=== PATIENT | female | born 1960 | race Two or more races ===

== ENCOUNTER → 2023-10-16 12:36 | Outpatient (REF) | payer OTHER, SELFPAY | LOC: HWRAD 12:36 | PROVIDERS: ATTENDING PHYSICIAN Internal Medicine Gastroenterology; FAMILY PHYSICIAN Family Medicine; REFERRING PHYSICIAN Internal Medicine Gastroenterology | DX: Z96.89 Presence of other specified functional implants (principal) | CPT/HCPCS: 74018 ==

== ENCOUNTER 2023-10-22 23:49 | Inpatient (IN) | payer MEDICARE, OTHER, SELFPAY ==
[2023-10-22 20:51] LABS: % Basophils 0.9 % (0-2); % Eosinophils 3.1 % (0-6); % Immature Granulocytes 0.4 % (0-0.5); % Lymphocytes 30.3 % (20.5-51.1); % Monocytes 5.8 % (1.7-9.3); % Neutrophils 59.5 % (42.2-75.2); Absolute Basophils 0.1 10^3/uL (0-0.2); Absolute Eosinophils 0.4 10^3/uL (0-0.7); Absolute Immature Granulocytes 0.1 10^3/uL (0-0.05); Absolute Lymphocytes 3.9 10^3/uL (1.2-3.4); Absolute Monocytes 0.8 10^3/uL (0.1-0.6); Absolute Neutrophils 7.7 10^3/uL (1.4-6.5); Hematocrit 39.8 % (37.0-47.0); Hemoglobin 13.9 g/dL (12.0-16.0); Mean Corp Hgb Conc. 34.9 g/dL (33.0-37.0); Mean Corpuscular Hgb 26.3 pg (27.0-31.0); Mean Corpuscular Volume 75.4 fL (81.0-99.0); Mean Platelet Volume 9.9 fL (7.4-10.4); Nucleated Red Blood Cells % 0 %; Platelet Count 402 10^3/uL (130-400); Red Blood Cell Count 5.28 10^6/uL (4.20-5.40); Red Cell Dist. Width 14.4 % (11.5-14.5); White Blood Cell Count 12.9 10^3/uL (4.8-10.8)
[2023-10-22 21:01] LABS: Lactic Acid 3.4 mmol/L (0.7-2.0)
[2023-10-22 21:09] LABS: ALT (SGPT) 40 U/L (0-35); AST (SGOT) 36 U/L (14-36); Albumin 4.8 g/dl (3.5-5.0); Alkaline Phosphatase 151 U/L (38-126); Blood Urea Nitrogen 13 mg/dl (7-17); Calcium 9.4 mg/dl (8.4-10.2); Carbon Dioxide 21 mmol/L (22-30); Chloride 99 mmol/L (98-107); Glucose 435 mg/dl (70-99); Potassium 3.9 mmol/L (3.5-5.1); Sodium 133 mmol/L (135-145); Total Bilirubin 0.5 mg/dl (0.2-1.3); Total Protein 7.6 g/dl (6.3-8.2); eGFR > 60.00
[2023-10-22 22:40] LABS: Lipase > 4000 U/L (23-300)
--- NOTE | 2023-10-22 22:49 | ED.GENMED ---
History of Present Illness
General
Chief Complaint: Abdominal Pain
Source: patient
Exam Limitations: none
Time Seen by Provider: 10/22/23 22:17
Nursing documentation reviewed up to this point in time: agreed with
Travel History
Have you had any contact with someone who has COVID-19?: No
Do you have any symptoms of coronavirus? Fever > 100 degrees, chills, cough, shortness of breath, sore throat, loss of taste or smell, muscle aches, or headache?: No
History of Present Illness
History of Present Illness:
Patient with history of pancreatitis and chronic abdominal pain, presents to ED secondary to worsening abdominal pain with nausea and vomiting starting this afternoon. Denies fever or chills. Abdominal pain described as sharp, nonradiating,
without any alleviating or exacerbating factors. Patient unfortunately has had number of similar in the past, and is being evaluated as an outpatient, including scheduled genetic testing next month. Denies recent change in medications or diet.
Denies fever or chills. Denies diarrhea.
Past History
Past History
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
ED Past Surgical History: Cholecystectomy, Gynecological and Other (status post several stents and cyst gastrostomy 10/2022)
Social History
Tobacco: Non-smoker
Alcohol: None
Personal:
Living: with family
Employment: Not employed
Family History
Family History: Other (Noncontributory)
Review of Systems
Review of Systems
Allergies reviewed?: Yes
All Other Systems: ROS reviewed and negative except as documented in HPI and ROS
Constitutional: Reports no symptoms; Denies fever
Respiratory: Reports no symptoms
Cardiac: Reports no symptoms
ABD/GI: Reports abdominal pain, nausea and vomiting; Denies diarrhea
Musculoskeletal: Reports no symptoms
Skin: Reports no symptoms
Neurological: Reports no symptoms
Phy Exam
Physical Exam
Physical Exam:
Physical Exam
General: moderate painful distress, not acutely ill. afebrile
Head: nc/at. eomi
Neck: supple. no meningeal signs.
Heart: s1/s2 regular rate and rhythm, no murmur. equal radial pulses.
Lungs: no acute respiratory distress. clear bilaterally
Abdomen: normal bowel sounds. no distention. moderate diffuse tenderness to palpation.
Neuro: alert and oriented. no focal neurological deficits
Skin: no rash
Psychiatric: well kept. interactive and cooperative
Extremities: no edema. no calf tenderness.
Course
Orders/Labs/Results
Orders:
Orders
10/22/23 20:43
Complete Blood Count/With Diff Urgent
Comprehensive Metabolic Panel Urgent
Lactic Acid Urgent
Lipase Urgent
Comment: ADD ON
Blood Culture Urgent
SANJIV Source: Blood/Venous
Specimen Description:
10/22/23 21:29
Add On- LAB Urgent
Tests Added?: lipase
10/22/23 21:39
Add On- LAB Urgent
Tests Added?: lipase
10/22/23 22:49
0.9% Sodium Chloride 1000 ml [Nss] 1,000 ml IV BOLUS
HYDROmorphone [Dilaudid] 1 mg IV NOW STA
Ondansetron Injectable [Zofran] 4 mg IV NOW STA
10/22/23 23:09
Diphenhydramine [Benadryl] 50 mg IV NOW STA
Hydrocortisone Sod Succinate [Solu-Cortef] 200 mg IV NOW STA
10/22/23 23:14
Admit/Transfer Patient As Directed
Co-Sign Provider:
Level of Care: Inpatient admission
Assign to:: Medical/Surgical
Physician / Group: justiny
Diagnosis: Recurrent idiopathic pancreatitis Leukocytosis
Reason for Hospitalization: Recurrent idiopathic pancreatitis
Leukocytosis
Expected length of stay greater than two midnights?: Yes
ELOS- Estimated Length of Stay in days: 4
I certify the patient meets the requirements for IP care: Yes
10/22/23 23:16
Code Status As Directed
Resuscitation Status: Full Code
10/23/23 00:00
CT Abd/pelvis W Iv Cont Urgent
Reason For Exam: upper abdominal pain w hx necrotizing pancreatitis
10/23/23 00:20
Albuterol [ProAIR HFA INHALER] 2 puff INH R Q4HPRN PRN
HYDROmorphone [Dilaudid] 1 mg IV Q3HPRN PRN
Lactated Ringers [Lr] 1,000 ml IV 250 mls/hr
Ondansetron Injectable [Zofran] 4 mg IV Q6HPRN PRN
10/23/23 00:20
Consult Notification Routine
Specialty to Notify: Gastroenterology
GASTROINTESTINAL CONSULT Routine
Consulting Provider: Natasha Jamison
Was physician already notified: No
Reason for consult: Recurrent idiopathic pancreatitis Leukocytosis
Activity As Directed
Activity Level: Encourage Progressive Amb
Intake/ Output As Directed
Frequency: Per unit guidelines
Vital Signs As Directed
Frequency: Per unit guidelines
Weight As Directed
Frequency: Daily
DX Deep Vein Thrombosis Video Routine
10/23/23 Breakfast
NPO
Allow oral meds: No
Allow clear liquids: No
NPO with Ice Chips: Yes
Complete Blood Count/No Diff IN AM
Comprehensive Metabolic Panel IN AM
Lipase IN AM
10/23/23 08:00
Levetiracetam Injectable [Keppra] 500 mg IV Q12
10/23/23 18:00
Enoxaparin Sodium [Lovenox] 40 mg SC QPM
10/24/23 06:00
Lipase IN AM
10/25/23 06:00
Lipase IN AM
Abnormal Lab Results
10/22/23
20:43
WBC 12.9 H 10^3/uL
(4.8-10.8)
MCV 75.4 L fL
(81.0-99.0)
MCH 26.3 L pg
(27.0-31.0)
Plt Count 402 H 10^3/uL
(130-400)
Abs Immat Gran (auto) 0.1 H 10^3/uL
(0-0.05)
Absolute Neuts (auto) 7.7 H 10^3/uL
(1.4-6.5)
Absolute Lymphs (auto) 3.9 H 10^3/uL
(1.2-3.4)
Absolute Monos (auto) 0.8 H 10^3/uL
(0.1-0.6)
Sodium 133 L mmol/L
(135-145)
Carbon Dioxide 21 L mmol/L
(22-30)
Glucose 435 H mg/dl
(70-99)
Lactic Acid 3.4 H mmol/L
(0.7-2.0)
ALT 40 H U/L
(0-35)
Alkaline Phosphatase 151 H U/L
(38-126)
Lipase > 4000 H* U/L
(23-300)
10/22/23 20:43
10/22/23 20:43
Vital Signs
Initial and Last Documented VS:
Initial Vital Signs
Temp Pulse Resp Pulse Ox
97.9 F 106 20 97
10/22/23 20:38 10/22/23 20:38 10/22/23 20:38 10/22/23 20:38
Last Documented Vital Signs
Temp Pulse Resp BP Pulse Ox
98.8 F 91 20 156/88 96
10/23/23 00:20 10/23/23 00:20 10/23/23 00:20 10/23/23 00:20 10/23/23 02:00
MDM/Problems Addressed
MDM/Problems Addressed:
History, exam, and blood work consistent with recurrent pancreatitis. Patient will be admitted for pain control and IV hydration.
*Critical Care Note
Total Time (30-74mins, 75-104mins- exclusive of procedures): Not Applicable
ED Attending Note
-
Portions of this chart may have been created with voice recognition software.� Occasional wrong word or��sound alike� substitutions may have occurred due to the inherent limitations of voice recognition software.
Discharge Plan
Departure
Patient Disposition: Admit
Date of Disposition: 10/22/23
Time of Disposition: 22:52
Admit to: Med/Surg
Presentation/result/management discussed w/ accepting MD/DO: Hospitalist
Discharge Problem:
Acute pancreatitis
Interventions
Interventions:
*Risk Screen - Suicide Last Done: 10/22/23 20:38
*General Assessment Last Done: 10/22/23 20:38
*Neglect/Abuse Screening Last Done: 10/22/23 20:38
ED- Fall Risk Assessment Last Done: 10/23/23 00:22
*ED COVID-19 Vaccine History Last Done: 10/23/23 00:22
*Nursing Disposition Last Done: 10/23/23 00:22
IX-Zqytpz-Yeptfqzxny Assessment Last Done: 10/22/23 23:10
Discharge Date and Time
Discharge Date/Time: 10/23/23 00:23
[2023-10-22] MEDS: NSS 1000 IV (23:03)
[2023-10-22] MEDS: ZOFRAN 4 MG IV (23:04)
[2023-10-22] MEDS: DILAUDID 1 MG IV (23:04)
[2023-10-22 23:08] VITALS: BP 152/100
--- NOTE | 2023-10-22 23:11 | HPS.HSE ---
Addendum entered and electronically signed by Robinson Lester MD 10/23/23 14:38:
CT AP w IV contrast
1. � Acute pancreatitis with extensive peripancreatic inflammatory change surrounding pancreatic head.
Small amount of unorganized associated peripancreatic and retroperitoneal fluid. No signs of abscess formation or well organized pseudocyst formation.
2. � Unchanged probable benign left lower lobe nodule as above.
3. � Hepatic fatty infiltration. Hepatic simple cysts and probable cysts as seen prior.
Original Note:
Family Physician
-
Family Physician: Ann Marie Bravo
Chief Complaint
-
abdominal pain
History of Present Illness
63F HX necrotizing pancreatitis, necrosectomy , on pancreatic enzymes, idiopathic recurrent pancreatitis pw abrupt onset of increasing upper abdominal pain 3 hrs after cheese burger tonight. Vomited. Denied nausea. Usually she does not fet
nausea. She immediacy came to ER
Medical History
Past Medical History
Past Medical History: Reports Other
Additional Past Medical History:
Epilepsy
Graves' disease -treated with radioactive iodine
Moderate persistent asthma
Seasonal allergies
Essential hypertension
Recurrent pancreatitis
Fibroids
SANDRA
IBS�D
Colon polyps
Past Surgical History: Reports Other
Additional Past Surgical History:
Cholecystectomy, Gynecological and Tonsillectomy
Social History
Tobacco: Former Smoker
Alcohol: None
Drug: None
Personal:
Living: With Family
Family History
Family History: Not pertinent
Allergies / Home Medications
Allergies reflects when Allergies were last updated in [facility].
Home Medications with original date entered in [facility]
Allergy/Medication List:
Allergies
Allergy/AdvReac Type Severity Reaction Status Date / Time
cephalexin [From Keflex] Allergy black Verified 10/22/23 20:38
tongue and
stool
Gadolinium-Containing Allergy Anaphylaxis Verified 10/22/23 20:38
Contrast Medi
Iodinated Contrast Media Allergy Hives Verified 10/22/23 20:38
Penicillins Allergy Hives Verified 10/22/23 20:38
Quinolones Allergy Achilles Verified 10/22/23 20:38
tendinitis
Home Medications
albuterol sulfate 90 mcg/actuation aerosol inhaler (Ventolin HFA) 2 puff inhalation R Q4HPRN PRN sob/wheezing 07/21/21
amlodipine 10 mg tablet 10 mg PO DAILY Blood pressure 07/21/21
cetirizine 10 mg tablet 10 mg PO HS Allergies 07/21/21
spironolactone 25 mg tablet 25 mg PO DAILY Fluid retention/Swelling 07/21/21
celecoxib 100 mg capsule (Celebrex) 100 mg PO HS Anti-inflammatory 04/15/22
levetiracetam 500 mg tablet (Keppra) 500 mg PO BID Neurological Condition 04/15/22
pantoprazole 40 mg tablet,delayed release 40 mg PO DAILY Gastrointestinal issue 04/15/22
biotin 1 mg capsule 1 mg PO DAILY Supplement 01/08/23
gabapentin 300 mg capsule 300 mg PO TID Pain 07/06/23
vkwihe-pqoqmtnt-tetjhzm 40,000-126,000-168,000 unit capsule, delay rel (Zenpep) 1 cap PO QID Pancreatitis 07/06/23
famotidine-Ca carb-mag hydrox 10 mg-800 mg-165 mg chewable tablet (Pepcid Complete) 1 tab PO DAILY@1900 10/22/23
levothyroxine 100 mcg tablet 100 mcg PO DAILY 10/22/23
zdfenc-qrgijnhi-jyjslqe 40,000-126,000-168,000 unit capsule, delay rel (Zenpep) 1 cap PO DAILY PRN snack 10/22/23
Review of Systems
-
Constitutional: Reports No Symptoms
EENT: Reports No Symptoms
Respiratory: Reports No Symptoms
Cardiac: Reports No Symptoms
Abdomen/GI: Reports See HPI and Abdominal Pain
: Reports No Symptoms
Musculoskeletal: Reports No Symptoms
Skin: Reports No Symptoms
Neurological: Reports No Symptoms
Endocrine: Reports No Symptoms
Hematologic/Lymphatic: Reports No Symptoms
Psych: Reports No Symptoms
Physical Exam
Vital Signs
Vital Signs
Temp Pulse Resp Pulse Ox
97.9 F 106 20 97
10/22/23 20:38 10/22/23 20:38 10/22/23 20:38 10/22/23 20:38
Physical Exam
General: Well Developed, Well Nourished and Other (obese )
HEENT: Anicteric and PERRLA
Respiratory: Clear; No Wheezes, Rales or Rhonchi
Cardiac: S1/S2, Regular Rhythm and Tachycardia
Breast: Deferred by me
GI: Non Distended and Tender (epigastruin ); No Soft (firm )
Rectal: Deferred by Provider
Genito-urinary: Deferred by me
Musculoskeletal: No Edema
Neuro: AO x 3 and Nonfocal/grossly intact
Psych: Calm
Laboratory Results
-
10/22/23 20:43
10/22/23 20:43
Laboratory Results
Lactic Acid 3.4 mmol/L (0.7-2.0) H 10/22/23 20:43
Total Bilirubin 0.5 mg/dl (0.2-1.3) 10/22/23 20:43
AST 36 U/L (14-36) 10/22/23 20:43
ALT 40 U/L (0-35) H 10/22/23 20:43
Alkaline Phosphatase 151 U/L (38-126) H 10/22/23 20:43
Lipase > 4000 U/L (23-300) H* 10/22/23 20:43
Data Reviewed
-
CT Scan: Other (pending )
Lab Data: Labs Reviewed by me
Old Records: Reviewed
Impression/Plan
-
Reviewed VS: Sinus tachy low 100 Normotensive
Data
WCC 12.9 Plt 402
Na 133 CO2 21 nl Cr eGFR > 60
BG 435
LA 3.4
Lipase > 4000
BCx sent
07/08/23 MRCP
reveal any evidence of biliary stricture/ductal dilatation or CBD stone, pancreas divisum seen on MRCP this admission ?probable cause of recurrent pancreatitis, she is status post cholecystectomy per GI consult on last admission
Last hospitalist admission: 07/06/23 - 07/10/23
Recurrent idiopathic pancreatitis
Pancreatic pseudocyst
ASSESSMENT & PLAN
Recurrent idiopathic pancreatitis
Leukocytosis and Afebrile
HX necrotizing pancreatitis requiring necrosectomy in [place].
HX pancreatic pseudocyst requiring cyst-gastrostomy October 2022
HX contrast allergy
- Need prep for contrast allergy for CT AP w contrast
- NPO and LR IVF 250 cc /H
- PRN Dilaudid analgesia
- low threshold for Extended broad spect ABx like Imipenam if hemodynamically unstable
- GI consult
Epilepsy -stable
- will switch to IV Keppra. in place of PO
HX moderate persistent asthma -stable
- on inhalers.
Essential hypertension -stable.
Graves' disease -treated with radioactive iodine.
- on Synthroid.
SANDRA
Obesity due to excess calories
GERD
DVT Px: LMWH
Code: Full code
IP MS
[2023-10-22] MEDS: SOLU-CORTEF 200 MG IV (23:13)
[2023-10-22] MEDS: BENADRYL 50 MG IV (23:13)
--- NOTE | 2023-10-23 | PTCARENOTE ---
Received pt from ED, pt ambulated from stretcher to bed. Pt in 06/10 pain in abd-see oct. IVF as ordered.
[2023-10-23 00:20] VITALS: BP 156/88; BMI 34.2
[2023-10-23] MEDS: LR 1000 IV ×4 (00:45→18:29)
[2023-10-23] MEDS: DILAUDID 1 MG IV ×7 (00:46→21:17)
[2023-10-23] MEDS: ZOFRAN 4 MG IV ×3 (04:26→18:15)
[2023-10-23 04:38] LABS: Hematocrit 37.8 % (37.0-47.0); Hemoglobin 12.9 g/dL (12.0-16.0); Mean Corp Hgb Conc. 34.1 g/dL (33.0-37.0); Mean Corpuscular Volume 76.2 fL (81.0-99.0); Mean Platelet Volume 10.1 fL (7.4-10.4); Platelet Count 354 10^3/uL (130-400); Red Blood Cell Count 4.96 10^6/uL (4.20-5.40); Red Cell Dist. Width 14.6 % (11.5-14.5)
[2023-10-23 04:59] LABS: Lactic Acid 1.6 mmol/L (0.7-2.0)
[2023-10-23 05:37] LABS: ALT (SGPT) 37 U/L (0-35); AST (SGOT) 28 U/L (14-36); Albumin 4.3 g/dl (3.5-5.0); Alkaline Phosphatase 142 U/L (38-126); Blood Urea Nitrogen 14 mg/dl (7-17); Calcium 9.1 mg/dl (8.4-10.2); Carbon Dioxide 22 mmol/L (22-30); Chloride 106 mmol/L (98-107); Estimated Creatinine Clearance 98 ml/min; Glucose 356 mg/dl (70-99); Lipase 1348 U/L (23-300); Potassium 4.3 mmol/L (3.5-5.1); Sodium 136 mmol/L (135-145); Total Bilirubin 0.5 mg/dl (0.2-1.3); Total Protein 6.8 g/dl (6.3-8.2); eGFR > 60.00
--- NOTE | 2023-10-23 07:26 | CON.GI ---
Addendum entered and electronically signed by Natasha Nowak Do, MD 10/23/23 16:14:
I saw and examined the patient.
The TRUCK TRAILER MECHANIC's note was reviewed and I agree with the note.
Comment: Lynette is a 63yo W with h/o GERD and SANDRA who is known to GI for h/o recurrent idiopathic pancreatitis. She has had necrosis with fluid collection with stenting at [facility] 04/2022 with necrosectomy and LAMS sent 09/2022 with cyst gastrectomy
10/2022 with [facility]. She is admitted for severe epigastric abd pain and pancreatitis. Her last prior admission was in 12/2022 at and she had EUS/ERCP with Dr Sanchez in Sep 2023 with PD sphincterotomy and PD stenting which did not alleviate
her pain. She currently denies any clear triggers but was eating cheese steak at the time of pain starting. Vitals stable, TTP epigastric area. Labs reviewed lipase >4000 on admission. LFTs flat with ALT of 37 AP 142. CTAP acute pancreatitis
with extensive peripancreatic inflammation around head. Small peripancreatic fluid.
Impression
- Acute on chronic pancreatitis
No clear trigger, workup in past neg IGG4, TG
No new medds
- New diabetes diagnosis
- h/o Cdiff
- SANDRA
- Seizures
- Hypothyroidism
Recommendations
- Bowel rest
- C/w IVF LR at 250cc/hr
- Pain management
- DM teaching
- c/w creon once diet is resumed
- D/w Dr Hawthorne/[facility] about EUS neuroloysis for terminal operator management of pain
- Resume neurontin once able to tolerate PO intake
Will follow with you
Original Note:
Consultation
-
Date/Time Consultation Requested: 10/22/2319
Date/Time Consultation Performed: 10/23/2325
Requesting Provider: Dr. Lester
Performing Provider: Dr. Jamison/BAYRON Camacho
Reason for Consultation: pancreatitis
Medical History
Chief Complaint / HPI
Chief Complaint: abdominal pain
History of Present Illness:
63-year-old female with past medical history of GERD, hepatic cyst, obstructive sleep apnea, seizures, Cdiff and multiple episodes of diarrhea ?EPI and hypoparathyroidism, recurrent idiopathic pancreatitis with history of necrosis and fluid
collection requiring lams at [facility] and pigtail stent in 04/2022 with necrosectomy and another lams stent on 09/2022 with removal and cyst gastrectomy on 10/[address] Sanchez at [facility] recurrent pancreatitis in 12/2022 who was placed on
gabapentin by Dr. Sanchez approximately April 2023 with improvement of chronic pain.�She was admitted in July 2023 with recurrent pancreatitis Evidence of biliary stricture/ductal dilatation or CBD stone, pancreatic divisum seen on MRCP this
admission questionable probable cause of recurrent pancreatitis. She had EUS/ERCP on 09/25/[address] Sanchez showing Pancreas divisum with minimally dilated and irregular dorsal pancreatic duct. Severe parenchymal atrophy in the upstream body and
tail. Small anechoic lesion in the pancreatic head. The patient had a biliary sphincterotomy and pancreatic sphincterotomy the dorsal duct was assessed via the minor papilla. The dorsal duct was mildly dilated and irregular in the head of the
pancreas then attenuated in the body and tail. Status post minor papillotomy and 4 Austrian stent placement. The pancreatic duct stent is designed to dislodge spontaneously. Removal of remaining cyst gastrostomy stent at that time. XR of abdomen on
10/16 shows no remaining pancreatic stent. The patient states that she developed a mild abdominal pain around 10/16/23 that was relieved after having a large BM. She had xray that conformed passage of pancreatic stent and large fecal burden was
present. Patient states that this xray was prior to her passing large amount of stool. She states that just after having tent placed she was using Tramadol twice a day but has since stopped. She states that she is maintained on Gabapentin for her
chronic pain by Dr. Sanchez which is usually managable. Last evening she states that for dinner they made cheesesteaks and right after she had acute onset of pain which is different from her prior events. She usually has a build up of pain over a
couple days. This was sudden, periumbilical, dull, aching, radiated through to the back, she states that rocking back and forth soothed her, she noticed 'peanut butter colored stools' different from her dark brown stools but normal yellow urine,
nausea without vomiting. She came directly to the hospital. he denies any F, C, V, melena, hematochezia, dysphagia or odynophagia.
Past Medical History
Past Medical History: GERD, HTN and Other (Hepatic cyst, obstructive sleep apnea, idiopathic pancreatitis with history of necrosis and fluid collection, bronchitis, seizures, hypoparathyroidism, asthma, fibroids, seasonal allergies)
Past Surgical History: Cholecystectomy, Tonsilectomy and Other (Lams procedure with pigtail stent 04/2022, necrosectomy with lams stent on 09/2022 with removal and cyst gastrectomy on 10/2022)
Social History
Tobacco: Former Smoker
Alcohol: None
Drug: None
Personal:
Living: With Family
Employment: Employed
Family History
Family History: Other (Mother with pancreatic cancer, no other family history of gastrointestinal malignancies or inflammatory bowel disease)
Allergies / Home Medications
Allergy/AdvReac Type Severity Reaction Status Date / Time
cephalexin [From Keflex] Allergy black Verified 10/22/23 20:38
tongue and
stool
Gadolinium-Containing Allergy Anaphylaxis Verified 10/22/23 20:38
Contrast Medi
Iodinated Contrast Media Allergy Hives Verified 10/22/23 20:38
Penicillins Allergy Hives Verified 10/22/23 20:38
Quinolones Allergy Achilles Verified 10/22/23 20:38
tendinitis
Medication Instructions Recorded
albuterol sulfate 90 mcg/actuation 2 puff inhalation R Q4HPRN PRN 07/21/21
aerosol inhaler (Ventolin HFA) sob/wheezing
amlodipine 10 mg tablet 10 mg PO DAILY Blood pressure 07/21/21
cetirizine 10 mg tablet 10 mg PO HS Allergies 07/21/21
spironolactone 25 mg tablet 25 mg PO DAILY Fluid 07/21/21
retention/Swelling
celecoxib 100 mg capsule (Celebrex) 100 mg PO HS Anti-inflammatory 04/15/22
levetiracetam 500 mg tablet 500 mg PO BID Neurological 04/15/22
(Keppra) Condition
pantoprazole 40 mg tablet,delayed 40 mg PO DAILY Gastrointestinal 04/15/22
release issue
biotin 1 mg capsule 1 mg PO DAILY Supplement 01/08/23
gabapentin 300 mg capsule 300 mg PO TID Pain 07/06/23
fmhsag-oqpgczkh-alfguat 1 cap PO MEALS Pancreatitis 07/06/23
40,000-126,000-168,000 unit
capsule, delay rel (Zenpep)
famotidine-Ca carb-mag hydrox 10 1 tab PO DAILY@1900 10/22/23
mg-800 mg-165 mg chewable tablet
(Pepcid Complete)
levothyroxine 100 mcg tablet 100 mcg PO DAILY 10/22/23
hxadap-mqmesqnp-sgcklwt 1 cap PO DAILY PRN snack 10/22/23
40,000-126,000-168,000 unit
capsule, delay rel (Zenpep)
Review of Systems
-
All other systems: A 12 pt ROS was Negative except as stated above in HPI
Vital Signs
Temp Pulse Resp BP Pulse Ox
98.8 F 91 20 156/88 96
10/23/23 00:20 10/23/23 00:20 10/23/23 00:20 10/23/23 00:20 10/23/23 02:00
Physical Exam
Exam
General: Other (appears uncomfortable)
HEENT: Anicteric
Respiratory: Clear
Cardiac: Regular Rhythm
GI: Soft, Non Distended, Normal Bowel Sounds and Tender (periumbilical/epigastric)
Musculoskeletal: No Edema
Skin: Warm and Dry
Neuro: AO x 3
Psych: Calm
Results
WBC 14.0 10^3/uL (4.8-10.8) H 10/23/23 04:25
Hgb 12.9 g/dL (12.0-16.0) 10/23/23 04:25
Hct 37.8 % (37.0-47.0) 10/23/23 04:25
MCV 76.2 fL (81.0-99.0) L 10/23/23 04:25
Plt Count 354 10^3/uL (130-400) 10/23/23 04:25
Absolute Neuts (auto) 7.7 10^3/uL (1.4-6.5) H 10/22/23 20:43
Sodium 136 mmol/L (135-145) 10/23/23 04:25
Potassium 4.3 mmol/L (3.5-5.1) 10/23/23 04:25
Chloride 106 mmol/L (98-107) 10/23/23 04:25
Carbon Dioxide 22 mmol/L (22-30) 10/23/23 04:25
BUN 14 mg/dl (7-17) 10/23/23 04:25
Creatinine 0.6 mg/dL (0.6-1.0) 10/23/23 04:25
Calcium 9.1 mg/dl (8.4-10.2) 10/23/23 04:25
Total Bilirubin 0.5 mg/dl (0.2-1.3) 10/23/23 04:25
AST 28 U/L (14-36) 10/23/23 04:25
ALT 37 U/L (0-35) H 10/23/23 04:25
Alkaline Phosphatase 142 U/L (38-126) H 10/23/23 04:25
Lipase 1348 U/L (23-300) H* 10/23/23 04:25
Diagnostic Image Results:
Awaiting CT results
Prior GI Procedures:
09/25/2023 ERCP (Dr. Sanchez): There is no evidence of prior cholecystectomy. The bile duct was dilated to a maximum of 14 mm and tapered to the papilla. There were no filling defects or strictures. The ventral pancreatic duct was assessed via
the major papilla. There was a small distally branching ductal structure consistent with pancreas divisum. At the proximal aspect of the duct there was a small amount of extravasation into the known pseudocyst. Status post biliary sphincterotomy
and pancreatic sphincterotomy the dorsal duct was assessed via the minor papilla. The dorsal duct was mildly dilated and irregular in the head of the pancreas then attenuated in the body and tail. Status post minor papillotomy and 4 Austrian stent
placement. The pancreatic duct stent is designed to dislodge spontaneously. Removal of remaining cyst gastrostomy stent. Recommend follow-up AXR in 3 weeks to assess for stent migration.
09/25/23 EUS ([facility]): Pancreas divisum with minimally dilated and irregular dorsal pancreatic duct. Severe parenchymal atrophy in the upstream body and tail. Small anechoic lesion in the pancreatic head.
EGD:� 05/10/2022 Dr. Ramirez: �Normal esophagus. An Axio stent with two pigtails was noted in the gastric body. Old blood clot was noted inside the stent. No active bleeding was noted . Normal examined duodenum. No specimens collected.
Colonoscopy:� 11/02/2020, Dr. Huerta: The examined portion of the ileum was normal. One 3 mm polyp in the descending colon, removed with� a jumbo cold forceps. Resected and retrieved. Normal mucosa in the entire examined colon. Biopsied.� Internal
hemorrhoids. Path showing TA, focal acute colitis on random colon bx. Repeat in 3 years.
10/14/22 EUS/ERCP [facility]: LAMS stent removal and placement of pigtail stent, 5Fr; prior LAMS placed 09/12/22
Assessment / Plan
-
63-year-old female with past medical history of recurrent idiopathic pancreatitis with history of necrosis and fluid collection requiring lams at [facility] and pigtail stent in 04/2022 with necrosectomy and another lams stent on 09/2022 with removal
and cyst gastrectomy on 10/[address] Sanchez at [facility] recurrent pancreatitis in 12/2022, 07/2023 with EUS/ERCP on 09/25/[address] Sanchez showing Pancreas divisum with minimally dilated and irregular dorsal pancreatic duct. Severe
parenchymal atrophy in the upstream body and tail. Small anechoic lesion in the pancreatic head. The patient had a biliary sphincterotomy and pancreatic sphincterotomy the dorsal duct was assessed via the minor papilla. The dorsal duct was mildly
dilated and irregular in the head of the pancreas then attenuated in the body and tail. Status post minor papillotomy and 4 Austrian stent placement. The pancreatic duct stent is designed to dislodge spontaneously. Removal of remaining cyst
gastrostomy stent at that time. XR of abdomen on 10/16 shows no remaining pancreatic stent. Presents with acute onset of periumbilical pain, that radiates to the back after eating cheesesteak last evening. Lipase >4000. ALT/Alk Phos elevated. Patient
also with leukocytosis. Awaiting CT Abd/Pelvis. Has been started on LR at 250 hr with appropriate drop in Hgb and normalization of Lactic acid from 3.4 to 1.6.
Impression:
Acute pancreatitis
History of recurrent idiopathic pancreatitis with history of necrosis, 12/2022, 04/2023, 07/2023
Pancreatic divisum
Plan
-Continue lactated Ringer's at 250 an hour
-Continue analagesia and antiemetics
-Incentive spirometer
-Await results of CT Abd/Pelvis
-Await blood culture
-CRP in am
-CBC, CMP, lipase in a.m.
-Patient to resume pancreatic enzymes once tolerating diet
Data Reviewed
-
Old Records: Reviewed
-
-
Thank you for consultation and allowing me to participate in the patient's care. Please call the board of education secretary GI physician during the after hours with any questions or concerns.
[2023-10-23 07:55] VITALS: BP 153/87
[2023-10-23] MEDS: KEPPRA 500 MG IV ×2 (08:20→19:57)
--- NOTE | 2023-10-23 08:52 | W.PN.HOSP.TC ---
Today's Communication/Plan
-
Reduce rate of IV fluids
Hemoglobin A1c
Sliding scale insulin
Assessment / Plan
Assessment / Plan
Gen-AAOx3, NAD, obese
HEENT-NC, AT, anicteric, clear oral mm
Neck-supple
CV-reg, no M, +S1/S2
Lungs-clear B/L
Abd-soft, tender without guarding or rebound
Ext-no edema
Musculoskeletal-no cyanosis, clubbing
Skin-warm and dry
Neuro-grossly non-focal
Psych-calm, cooperative
Recurrent acute pancreatitis -possibly triggered by dietary indiscretion. Ate a beef cheese steak last night. Continue n.p.o., antiemetics, analgesics. Has received 3 L of lactated Ringer's solution so far. Will reduce rate to 100 cc/h. CT scan
shows acute pancreatitis with extensive peripancreatic inflammatory change surrounding the pancreatic head. No signs of abscess formation or well-organized pseudocyst formation.
GI consulted. Previous IgG4 levels were normal.
She had a pancreatic stent placed 4 weeks ago in [place], reportedly came out 1 week ago as noted on abdominal x-ray.
History of necrotizing pancreatitis -requiring necrosectomy in the past.
DM2 with hyperglycemia -she reports a hemoglobin A1c of 6.7% in August. Will recheck. Glucose 435 last night, 356 this morning. Add sliding scale insulin for now.
Hyponatremia -present on admission. Improved.
Essential hypertension -stable.
History of Graves' disease, hypothyroidism -resume Synthroid when able.
Epilepsy -continue Keppra IV.
Chronic pain syndrome -due to chronic pancreatitis. She is on gabapentin and pancreatic enzymes.
Moderate persistent asthma -stable.
Obesity due to excess calories
Full code
Anticipated Discharge: > 48 hours
Subjective/Interval History
-
Date of Service: October 23, 2023
Patient seen and examined. Complaining of abdominal pain. Denies nausea.
Objective Data
-
Labs:
Laboratory Results
10/22/23 10/23/23
20:43 04:25
WBC 12.9 H 14.0 H
Hgb 13.9 12.9
Hct 39.8 37.8
Plt Count 402 H 354
Sodium 133 L 136
Potassium 3.9 4.3
Chloride 99 106
Carbon Dioxide 21 L 22
BUN 13 14
Creatinine 0.7 0.6
Glucose 435 H 356 H
Calcium 9.4 9.1
Total Bilirubin 0.5 0.5
AST 36 28
ALT 40 H 37 H
Alkaline Phosphatase 151 H 142 H
Vital Signs:
Vital Signs
Temp Pulse Resp BP Pulse Ox
98.4 F 89 18 153/87 95
10/23/23 07:55 10/23/23 07:55 10/23/23 07:55 10/23/23 07:55 10/23/23 07:55
Review of Systems
-
History Source: Patient
All other systems: Reviewed and negative
[2023-10-23 09:34] LABS: Glycohemoglobin (HgbA1c) 10.5 % (4.0-5.6)
[2023-10-23] MEDS: LR IV (10:54)
[2023-10-23 11:04] LABS: Alcohol None Detected
[2023-10-23 12:05] LABS: Glucose - Point of Care 190 mg/dl (70-99)
[2023-10-23] MEDS: NOVOLOG FLEXPEN-LOW RESISTANCE 1 UNITS SC ×2 (13:25→18:25)
[2023-10-23 15:39] VITALS: BP 149/95
--- NOTE | 2023-10-23 16:34 | CM ---
CM following re: d/c planning
Chart reviewed
CM met with the patient and her spouse at bedside; IA completed
Pt reports she and her house reside in a split-level home with 2STE
SCHOOL BUS AIDE patient reports independence at baseline
Pt has no past SNF hx, has VN hx with [facility], and has a r/w, spc, shower chair, & bsc for use if needed
Pt has prescription coverage and rx's are filled at [facility] [address] [place]
Pt PCP-Dr. Ann Marie Bravo
No needs are anticipated once stable
CM will continue to monitor patient's progress and assist with any needs at d/c as applicable
PLAN; d/c home no needs anticipated
[2023-10-23] MEDS: LOVENOX 40 MG SC (18:15)
[2023-10-23 18:24] LABS: Glucose - Point of Care 162 mg/dl (70-99)
[2023-10-23 22:43] VITALS: PULSE 83
[2023-10-23 23:30] VITALS: BP 158/88
[2023-10-23] MEDS: LANTUS 0.100000000000000006 UNITS SC (23:51)
[2023-10-24] MEDS: BENADRYL 25 MG IV ×3 (00:07→11:06)
[2023-10-24] MEDS: DILAUDID 1 MG IV ×5 (00:36→21:18)
[2023-10-24 01:48] LABS: Glucose - Point of Care 183 mg/dl (70-99)
[2023-10-24] MEDS: NOVOLOG FLEXPEN-LOW RESISTANCE 300 UNITS SC ×2 (01:52→06:11)
[2023-10-24 05:04] VITALS: BMI 34.7
[2023-10-24] MEDS: LR 1000 IV ×2 (05:11→16:29)
[2023-10-24] MEDS: ProAIR HFA INHALER 2 PUFF INH (06:05)
[2023-10-24 06:07] LABS: Glucose - Point of Care 178 mg/dl (70-99)
[2023-10-24 07:38] LABS: % Basophils 0.9 % (0-2); % Eosinophils 4.1 % (0-6); % Immature Granulocytes 0.6 % (0-0.5); % Lymphocytes 26.5 % (20.5-51.1); % Monocytes 6.7 % (1.7-9.3); % Neutrophils 61.2 % (42.2-75.2); Absolute Basophils 0.1 10^3/uL (0-0.2); Absolute Eosinophils 0.4 10^3/uL (0-0.7); Absolute Immature Granulocytes 0.1 10^3/uL (0-0.05); Absolute Lymphocytes 2.8 10^3/uL (1.2-3.4); Absolute Monocytes 0.7 10^3/uL (0.1-0.6); Absolute Neutrophils 6.4 10^3/uL (1.4-6.5); Hematocrit 33.9 % (37.0-47.0); Hemoglobin 11.3 g/dL (12.0-16.0); Mean Corp Hgb Conc. 33.3 g/dL (33.0-37.0); Mean Corpuscular Hgb 26.6 pg (27.0-31.0); Mean Corpuscular Volume 79.8 fL (81.0-99.0); Mean Platelet Volume 10.1 fL (7.4-10.4); Nucleated Red Blood Cells % 0 %; Platelet Count 304 10^3/uL (130-400); Red Blood Cell Count 4.25 10^6/uL (4.20-5.40); Red Cell Dist. Width 15.1 % (11.5-14.5); White Blood Cell Count 10.4 10^3/uL (4.8-10.8)
[2023-10-24 07:55] VITALS: BP 135/77
[2023-10-24 08:31] LABS: ALT (SGPT) 32 U/L (0-35); AST (SGOT) 30 U/L (14-36); Albumin 3.9 g/dl (3.5-5.0); Alkaline Phosphatase 119 U/L (38-126); Blood Urea Nitrogen 9 mg/dl (7-17); Calcium 8.4 mg/dl (8.4-10.2); Carbon Dioxide 27 mmol/L (22-30); Chloride 101 mmol/L (98-107); Estimated Creatinine Clearance 85 ml/min; Glucose 169 mg/dl (70-99); Lipase 501 U/L (23-300); Potassium 3.4 mmol/L (3.5-5.1); Sodium 135 mmol/L (135-145); Total Bilirubin 0.8 mg/dl (0.2-1.3); Total Protein 6.2 g/dl (6.3-8.2); eGFR > 60.00
--- NOTE | 2023-10-24 09:19 | W.PN.HOSP.TC ---
Today's Communication/Plan
-
Continue IV fluids
Diabetes education consult
Replete potassium
Check magnesium
Assessment / Plan
Assessment / Plan
Gen-AAOx3, NAD, obese
HEENT-NC, AT, anicteric, clear oral mm
Neck-supple
CV-reg, no M, +S1/S2
Lungs-clear B/L
Abd-soft, tender without guarding or rebound
Ext-no edema
Musculoskeletal-no cyanosis, clubbing
Skin-warm and dry
Neuro-grossly non-focal
Psych-calm, cooperative
Recurrent acute pancreatitis -possibly triggered by dietary indiscretion. Ate a beef cheese steak last night. Continue n.p.o., antiemetics, analgesics. Has received 3 L of lactated Ringer's solution so far. Will reduce rate to 100 cc/h. CT scan
shows acute pancreatitis with extensive peripancreatic inflammatory change surrounding the pancreatic head. No signs of abscess formation or well-organized pseudocyst formation.
GI consulted. Previous IgG4 levels were normal.
She had a pancreatic stent placed 4 weeks ago in [place], reportedly came out 1 week ago as noted on abdominal x-ray. Evaluated by Dr. Hawthorne, will need outpatient follow-up.
History of necrotizing pancreatitis -requiring necrosectomy in the past.
DM2 with hyperglycemia -she reports a hemoglobin A1c of 6.7% in August. Hemoglobin A1c 10.5% currently. New diagnosis of diabetes for her. Glucose 169 this morning, received 10 units of Lantus last night. Continue sliding scale insulin. Add
mealtime insulin when she resumes diet. Consult diabetes education. Encouraged weight loss to help manage her diabetes. Follow-up with Dr. Reilly her billing checker.
Hypokalemia -check magnesium. Will replete.
Hyponatremia -present on admission. Improved.
Essential hypertension -stable.
History of Graves' disease, hypothyroidism -resume Synthroid when able.
Epilepsy -continue Keppra IV.
Chronic pain syndrome -due to chronic pancreatitis. She is on gabapentin and pancreatic enzymes.
Moderate persistent asthma -stable.
Obesity due to excess calories
Full code
Anticipated Discharge: > 48 hours
Subjective/Interval History
-
Date of Service: October 24, 2023
Patient seen and examined. Still with abdominal pain.
Objective Data
-
Labs:
Laboratory Results
10/24/23
07:16
WBC 10.4
Hgb 11.3 L
Hct 33.9 L
Plt Count 304
Sodium 135
Potassium 3.4 L
Chloride 101
Carbon Dioxide 27
BUN 9
Creatinine 0.7
Glucose 169 H
Calcium 8.4
Total Bilirubin 0.8
AST 30
ALT 32
Alkaline Phosphatase 119
Vital Signs:
Vital Signs
Temp Pulse Resp BP Pulse Ox
98.0 F 93 20 158/88 96
10/23/23 23:30 10/23/23 23:30 10/23/23 23:30 10/23/23 23:30 10/23/23 23:30
I&O
10/23/23 10/24/23 10/25/23
06:59 06:59 06:59
Intake Total 1839
Balance 1839
Review of Systems
-
History Source: Patient
All other systems: Reviewed and negative
[2023-10-24] MEDS: KCL 270 MEQ IV (09:40)
[2023-10-24] MEDS: FLUSH (NSS) 2 FLUSH IV (09:40)
[2023-10-24] MEDS: KEPPRA 500 MG IV ×2 (09:40→19:49)
[2023-10-24 10:08] LABS: Magnesium 1.8 mg/dl (1.6-2.3)
--- NOTE | 2023-10-24 11:15 | PTCARENOTE ---
Diabetes education- Met with Lynette and at bedside. A1C 10.5% (recalls being 6.5-6.7%). Past hx of necrosectomy which increases her risk of pancreatic failure. Currently NPO. Provided with and instructions given on Contour Next EZ, good
return demonstration with result of 157 mg/dl. Aware of testing technique, sites and expected results. Testing pattern to be determined at discharge dependent on medications. Discussed onset, peak and duration of both rapid and long acting insulins
to familiarize her with their actions. Discussed injection sites, abd and outer thigh. Discussed symptoms and treatment of hypoglycemia. Instructions with excellent return demonstration x2 using insulin pen as well as storage of insulin pens. Take
home education booklet provided with information marked and phone number for follow up questions. Handout on outpt DSME classes given. Updates to JAMMIE Coronado with suggestion to have her self inject (take home pen needles on windowsill) to increase
comfort level in the event she is discharged on insulin.
--- NOTE | 2023-10-24 11:40 | W.PN.GI.CBS2 ---
Addendum entered and electronically signed by Chelsea Herrera DO 10/24/23 16:33:
Patient seen and examined independently of TALENT ACQUISITION RELATIONSHIP MANAGER. I agree with her note with my additions below
Lynette is a 63-year-old female with acute on chronic recurrent idiopathic pancreatitis (history of pancreatic divisum) these episodes appear to be more frequent who comes in with classic pancreatitis like pain as well as a lipase greater than 4000,
elevated CRP at 43 which is better than her normal of greater than 270. Her liver enzymes have normalized. Reviewed her CT scan. No organized pseudocyst.
Currently her pain is 7 out of 10 and she received Dilaudid about an hour and a half ago. She is on ice chips alone. Had mild nausea but may have been related to the Dilaudid. Is also itching
On exam she has bowel sounds and abdomen is soft but tender
Plan:
Clear liquid diet
Toradol 15 mg IV now
Incentive spirometer every hour
Okay to continue the Dilaudid but would like to alternate with Toradol -will minimize and monitor the amount of Toradol she gets because we do not want to worsen her renal function or cause any bleeding
Discussed with patient, and nursing
Original Note:
Today's Communication / Plan
-
Continue current tx
Assessment / Plan
-
63-year-old female with past medical history of recurrent idiopathic pancreatitis with history of necrosis and fluid collection requiring lams at [place] and pigtail stent in 04/2022 with necrosectomy and another lams stent on 09/2022 with removal
and cyst gastrectomy on 10/[address] Sanchez at [place] recurrent pancreatitis in 12/2022, 07/2023 with EUS/ERCP on 09/25/[address] Sanchez showing Pancreas divisum with minimally dilated and irregular dorsal pancreatic duct. Severe
parenchymal atrophy in the upstream body and tail. Small anechoic lesion in the pancreatic head. The patient had a biliary sphincterotomy and pancreatic sphincterotomy the dorsal duct was assessed via the minor papilla. The dorsal duct was mildly
dilated and irregular in the head of the pancreas then attenuated in the body and tail. Status post minor papillotomy and 4 [place] stent placement. The pancreatic duct stent is designed to dislodge spontaneously. Removal of remaining cyst
gastrostomy stent at that time. XR of abdomen on 10/16 shows no remaining pancreatic stent. Presents with acute onset of periumbilical pain, that radiates to the back after eating cheesesteak last evening. Lipase >4000. ALT/Alk Phos elevated. Patient
also with leukocytosis. Awaiting CT Abd/Pelvis. Has been started on LR at 250 hr with appropriate drop in Hgb and normalization of Lactic acid from 3.4 to 1.6.
Impression:
Acute pancreatitis
History of recurrent idiopathic pancreatitis with history of necrosis requiring necrosectomy in the past.
Recent episodes of Pancreatitis 12/2022, 04/2023, 07/2023
Pancreatic divisum
Diabetes with Hgb A1c 10.5
Plan
-Continue lactated Ringer's, currently at 100 cc/hr
-Continue analgesia and antiemetics
-Incentive spirometer
-CBC, CMP
-Patient to resume pancreatic enzymes once tolerating diet
-Resume Gabapentin when po started
-Follow up with Endocrine after DC
-Continue ice chips, hopefully be able to start sips of clears soon
-Follow up with Dr. Sanchez as outpatient
-Will follow
Subjective
Subjective
Date of Service: October 24, 2023
1348
Patient still with periumbilical pain but slightly improved.She states it is still a 'gnawing pain'. She is tolerating ice chips. She is passing flatus, she does have hiccups. Lipase is trending down 501 (1348, >4000). WBC is WNL, Hgb down trending
appropriately with IVF. IVF have been decreased to LR at 100 cc/hr. CRP 43.1, LFTs WNL. Hgb A1c is 10.5 up from 6.7 in August. Patient and are meeting with [employer].
Objective
Data Reviewed
Laboratory Data:
Laboratory Results
10/24/23 07:16
10/24/23 07:16
Laboratory Results
Magnesium 1.8 mg/dl (1.6-2.3) 10/24/23 07:16
Total Bilirubin 0.8 mg/dl (0.2-1.3) 10/24/23 07:16
AST 30 U/L (14-36) 10/24/23 07:16
ALT 32 U/L (0-35) 10/24/23 07:16
Alkaline Phosphatase 119 U/L (38-126) 10/24/23 07:16
Lipase 501 U/L (23-300) H 10/24/23 07:16
Vital Signs and I&O:
Vital Signs
Temp Pulse Resp BP Pulse Ox
98.1 F 78 18 135/77 94
10/24/23 07:55 10/24/23 07:55 10/24/23 07:55 10/24/23 07:55 10/24/23 07:55
I&O
10/23/23 10/24/23 10/25/23
06:59 06:59 06:59
Intake Total 1839
Balance 1839
Physical Exam
Physical Exam
HEENT: Anicteric
Cardiology: Normal Sinus Rhythm
Pulmonary: Clear
GI: Soft, Non Distended, Tender (mild periumbilical) and Normal Bowel Sounds
Extremities: No Edema
Neuro: Non Focal
--- NOTE | 2023-10-24 12:19 | CM ---
Addendum entered by Kathleen Gilbert 10/24/23 15:20:
Patient seen bedside, very thankful for computer repair technician and feels much better as she has a better understanding as of now. CM will continue to follow for discharge planning needs.
Plan; home no needs anticipated
Original Note:
Patient currently meeting with computer repair technician, CM will return at a later point. CM will continue to follow for discharge planning needs.
Plan; home no needs anticipated.
[2023-10-24 12:33] LABS: Glucose - Point of Care 139 mg/dl (70-99)
[2023-10-24] MEDS: NOVOLOG FLEXPEN-LOW RESISTANCE SC ×2 (12:58→17:45)
[2023-10-24 13:58] VITALS: BMI 34.7
[2023-10-24 15:32] VITALS: BP 144/83
[2023-10-24 17:44] LABS: Glucose - Point of Care 117 mg/dl (70-99)
[2023-10-24] MEDS: LOVENOX 40 MG SC (17:45)
[2023-10-24] MEDS: TORADOL 15 MG IV (17:46)
--- NOTE | 2023-10-24 18:30 | PTCARENOTE ---
Pt reports tolerating clear liquids without increase in abdominal pain, no N/V. Pt also reports that Toradol helped with the pain, not quite as good as Dilaudid, will monitor.
[2023-10-24] MEDS: ZYRTEC 10 MG PO (21:19)
[2023-10-24 21:33] LABS: Glucose - Point of Care 181 mg/dl (70-99)
[2023-10-24] MEDS: LANTUS 0.100000000000000006 UNITS SC (22:42)
[2023-10-24 23:07] VITALS: BP 138/86
[2023-10-25] MEDS: DILAUDID 1 MG IV ×4 (00:18→16:56)
[2023-10-25] MEDS: LR IV (02:31)
[2023-10-25] MEDS: LR 1000 IV (02:33)
[2023-10-25 06:00] VITALS: BMI 34.4
[2023-10-25] MEDS: ZOFRAN 4 MG IV (06:02)
[2023-10-25] MEDS: SYNTHROID 100 MCG PO (06:02)
[2023-10-25 07:16] VITALS: BP 130/76
[2023-10-25 07:29] LABS: % Basophils 0.9 % (0-2); % Eosinophils 6.9 % (0-6); % Immature Granulocytes 0.4 % (0-0.5); % Lymphocytes 30.6 % (20.5-51.1); % Monocytes 7.4 % (1.7-9.3); % Neutrophils 53.8 % (42.2-75.2); Absolute Basophils 0.1 10^3/uL (0-0.2); Absolute Eosinophils 0.5 10^3/uL (0-0.7); Absolute Lymphocytes 2.4 10^3/uL (1.2-3.4); Absolute Monocytes 0.6 10^3/uL (0.1-0.6); Absolute Neutrophils 4.2 10^3/uL (1.4-6.5); Hemoglobin 12.3 g/dL (12.0-16.0); Mean Corp Hgb Conc. 33.2 g/dL (33.0-37.0); Mean Corpuscular Hgb 26.6 pg (27.0-31.0); Mean Corpuscular Volume 80.1 fL (81.0-99.0); Mean Platelet Volume 10.5 fL (7.4-10.4); Nucleated Red Blood Cells % 0 %; Platelet Count 292 10^3/uL (130-400); Red Blood Cell Count 4.62 10^6/uL (4.20-5.40); Red Cell Dist. Width 14.8 % (11.5-14.5); White Blood Cell Count 7.7 10^3/uL (4.8-10.8)
[2023-10-25 07:54] LABS: ALT (SGPT) 33 U/L (0-35); AST (SGOT) 38 U/L (14-36); Alkaline Phosphatase 121 U/L (38-126); Blood Urea Nitrogen 6 mg/dl (7-17); Calcium 8.5 mg/dl (8.4-10.2); Carbon Dioxide 28 mmol/L (22-30); Chloride 101 mmol/L (98-107); Estimated Creatinine Clearance 98 ml/min; Glucose 117 mg/dl (70-99); Potassium 3.8 mmol/L (3.5-5.1); Sodium 136 mmol/L (135-145); Total Bilirubin 0.9 mg/dl (0.2-1.3); Total Protein 6.6 g/dl (6.3-8.2); eGFR > 60.00
[2023-10-25 07:58] LABS: Glucose - Point of Care 126 mg/dl (70-99)
[2023-10-25] MEDS: NOVOLOG FLEXPEN-LOW RESISTANCE SC ×3 (08:20→16:55)
[2023-10-25] MEDS: FLUSH (NSS) 2 FLUSH IV (08:22)
[2023-10-25] MEDS: KEPPRA 500 MG IV (08:22)
--- NOTE | 2023-10-25 09:08 | W.PN.HOSP.TC ---
Today's Communication/Plan
-
Diet per GI
Change meds to p.o.
Assessment / Plan
Assessment / Plan
Gen-AAOx3, NAD, obese
HEENT-NC, AT, anicteric, clear oral mm
Neck-supple
CV-reg, no M, +S1/S2
Lungs-clear B/L
Abd-soft, tender without guarding or rebound
Ext-no edema
Musculoskeletal-no cyanosis, clubbing
Skin-warm and dry
Neuro-grossly non-focal
Psych-calm, cooperative
Recurrent acute pancreatitis -possibly triggered by dietary indiscretion. Ate a beef cheese steak prior to admission. CT scan shows acute pancreatitis with extensive peripancreatic inflammatory change surrounding the pancreatic head. No signs of
abscess formation or well-organized pseudocyst formation.
GI consulted. Previous IgG4 levels were normal.
She had a pancreatic stent placed 4 weeks ago in [place], reportedly came out 1 week ago as noted on abdominal x-ray. Evaluated by Dr. Hawthorne, will need outpatient follow-up.
Tolerating clear liquid diet so far. Advance diet when okay with GI.
Patient states Toradol did help her pain. Will try to minimize opiates. Resume gabapentin. Resume pancreatic enzymes when eating solids.
History of necrotizing pancreatitis -requiring necrosectomy in the past.
DM2 with hyperglycemia -she reports a hemoglobin A1c of 6.7% in August. Hemoglobin A1c 10.5% currently. New diagnosis of diabetes for her. Glucose 126 this morning, received 10 units of Lantus last night. Continue sliding scale insulin. Add
mealtime insulin when she resumes diet. Seen by diabetes education. Encouraged weight loss to help manage her diabetes. Follow-up with Dr. Reilly her scrap handler.
Hypokalemia -potassium improved. Magnesium normal.
Hyponatremia -present on admission. Improved.
Essential hypertension -stable.
History of Graves' disease, hypothyroidism -resume Synthroid when able.
Epilepsy -continue Keppra IV.
Chronic pain syndrome -due to chronic pancreatitis. She is on gabapentin and pancreatic enzymes.
Moderate persistent asthma -stable.
Obesity due to excess calories
Full code
Anticipated Discharge: Within 24 hours
Subjective/Interval History
-
Date of Service: October 25, 2023
Patient seen and examined. Sitting in the chair, she looks and feels better. Still with abdominal pain but improving overall.
Objective Data
-
Labs:
Laboratory Results
10/25/23
06:38
WBC 7.7
Hgb 12.3
Hct 37.0
Plt Count 292
Sodium 136
Potassium 3.8
Chloride 101
Carbon Dioxide 28
BUN 6 L
Creatinine 0.6
Glucose 117 H
Calcium 8.5
Total Bilirubin 0.9
AST 38 H
ALT 33
Alkaline Phosphatase 121
Vital Signs:
Vital Signs
Temp Pulse Resp BP Pulse Ox
98.0 F 75 16 130/76 94
10/25/23 07:16 10/25/23 07:16 10/25/23 07:16 10/25/23 07:16 10/25/23 07:16
I&O
10/24/23 10/25/23 10/26/23
06:59 06:59 06:59
Intake Total 1839
Balance 1839
Review of Systems
-
History Source: Patient
All other systems: Reviewed and negative
--- NOTE | 2023-10-25 11:13 | W.PN.GI.CBS2 ---
Today's Communication / Plan
-
see a/p
Assessment / Plan
-
63-year-old female with past medical history of recurrent idiopathic pancreatitis with history of necrosis and fluid collection requiring lams at [place] and pigtail stent in 04/2022 with necrosectomy and another lams stent on 09/2022 with removal
and cyst gastrectomy on 10/[address] Sanchez at [place] recurrent pancreatitis in 12/2022, 07/2023 with EUS/ERCP on 09/25/[address] Sanchez showing Pancreas divisum with minimally dilated and irregular dorsal pancreatic duct. Severe
parenchymal atrophy in the upstream body and tail. Small anechoic lesion in the pancreatic head. The patient had a biliary sphincterotomy and pancreatic sphincterotomy the dorsal duct was assessed via the minor papilla. The dorsal duct was mildly
dilated and irregular in the head of the pancreas then attenuated in the body and tail. Status post minor papillotomy and 4 German stent placement. The pancreatic duct stent is designed to dislodge spontaneously. Removal of remaining cyst
gastrostomy stent at that time. XR of abdomen on 10/16 shows no remaining pancreatic stent. Presents with acute onset of periumbilical pain, that radiates to the back after eating cheesesteak last evening. Lipase >4000. ALT/Alk Phos elevated. Patient
also with leukocytosis. Awaiting CT Abd/Pelvis. Has been started on LR at 250 hr with appropriate drop in Hgb and normalization of Lactic acid from 3.4 to 1.6.
Impression:
Acute pancreatitis
History of recurrent idiopathic pancreatitis with history of necrosis requiring necrosectomy in the past.
Recent episodes of Pancreatitis 12/2022, 04/2023, 07/2023
Pancreatic divisum
Diabetes with Hgb A1c 10.5
Plan
-Continue analgesia and antiemetics
-Incentive spirometer
-Follow up with Endocrine after DC
10/25/23 - improving
alternate toradol and APAP and dilaudid if severe
started g[place]entin [place] [address] per meal
monitor kidney function
full liquid diet ok
possible d/c friday
patient concerned about insulin
Total Time Spent with Patient (in minutes): 30
Subjective
Subjective
Date of Service: October 25, 2023
slowly improving. +Flatus, no BM
did well with the toradol andn would like to try alternating APAP and toradol
Objective
Data Reviewed
Laboratory Data:
Laboratory Results
10/25/23 06:38
10/25/23 06:38
Laboratory Results
Magnesium 1.8 mg/dl (1.6-2.3) 10/24/23 07:16
Total Bilirubin 0.9 mg/dl (0.2-1.3) 10/25/23 06:38
AST 38 U/L (14-36) H 10/25/23 06:38
ALT 33 U/L (0-35) 10/25/23 06:38
Alkaline Phosphatase 121 U/L (38-126) 10/25/23 06:38
Lipase 501 U/L (23-300) H 10/24/23 07:16
Vital Signs and I&O:
Vital Signs
Temp Pulse Resp BP Pulse Ox
98.0 F 75 16 130/76 94
10/25/23 07:16 10/25/23 07:16 10/25/23 07:16 10/25/23 07:16 10/25/23 07:16
I&O
10/24/23 10/25/23 10/26/23
06:59 06:59 06:59
Intake Total 1839
Balance 1839
Physical Exam
Physical Exam
HEENT: Anicteric
Cardiology: Normal Sinus Rhythm
Pulmonary: Clear
GI: Soft and Tender
Extremities: No Edema
Neuro: Non Focal
[2023-10-25 11:56] LABS: Glucose - Point of Care 142 mg/dl (70-99)
[2023-10-25] MEDS: PROTONIX 40 MG PO (12:28)
[2023-10-25] MEDS: ZENPEP DELAYED RELEASE CAPSULE 4 CAPSULE PO ×2 (12:29→16:55)
[2023-10-25 15:32] VITALS: BP 124/69
[2023-10-25 16:53] LABS: Glucose - Point of Care 125 mg/dl (70-99)
[2023-10-25] MEDS: NEURONTIN 300 MG PO ×2 (16:56→21:20)
[2023-10-25] MEDS: LOVENOX 40 MG SC (17:01)
[2023-10-25] MEDS: ZYRTEC 10 MG PO (21:20)
[2023-10-25] MEDS: KEPPRA 500 MG PO (21:20)
[2023-10-25] MEDS: TORADOL 15 MG IV (21:27)
[2023-10-25 21:32] LABS: Glucose - Point of Care 168 mg/dl (70-99)
[2023-10-25] MEDS: LANTUS 0.100000000000000006 UNITS SC (21:34)
[2023-10-25 22:30] VITALS: PULSE 76
[2023-10-25 23:55] VITALS: BP 127/69
[2023-10-26] MEDS: SYNTHROID 100 MCG PO (04:50)
[2023-10-26] MEDS: TORADOL 15 MG IV ×2 (04:53→12:10)
[2023-10-26 05:00] VITALS: BMI 34.0
[2023-10-26 07:49] LABS: Glucose - Point of Care 142 mg/dl (70-99)
[2023-10-26 07:57] VITALS: BP 120/78
[2023-10-26] MEDS: KEPPRA 500 MG PO ×2 (07:58→20:24)
[2023-10-26] MEDS: PROTONIX 40 MG PO (07:58)
[2023-10-26] MEDS: ZENPEP DELAYED RELEASE CAPSULE 4 CAPSULE PO ×3 (07:58→17:02)
[2023-10-26] MEDS: NOVOLOG FLEXPEN-LOW RESISTANCE SC (07:58)
[2023-10-26] MEDS: NEURONTIN 300 MG PO ×3 (07:59→21:23)
[2023-10-26] MEDS: NORVASC 10 MG PO (07:59)
[2023-10-26 08:05] LABS: ALT (SGPT) 37 U/L (0-35); AST (SGOT) 44 U/L (14-36); Albumin 3.5 g/dl (3.5-5.0); Alkaline Phosphatase 99 U/L (38-126); Blood Urea Nitrogen 7 mg/dl (7-17); Calcium 9.1 mg/dl (8.4-10.2); Carbon Dioxide 31 mmol/L (22-30); Chloride 98 mmol/L (98-107); Estimated Creatinine Clearance 84 ml/min; Glucose 158 mg/dl (70-99); Potassium 3.6 mmol/L (3.5-5.1); Sodium 138 mmol/L (135-145); Total Bilirubin 0.8 mg/dl (0.2-1.3); Total Protein 6.3 g/dl (6.3-8.2); eGFR > 60.00
--- NOTE | 2023-10-26 08:21 | W.PN.HOSP.TC ---
Today's Communication/Plan
-
Add metformin
Dietary consult
Diet as tolerated
Assessment / Plan
Assessment / Plan
Gen-AAOx3, NAD, obese
HEENT-NC, AT, anicteric, clear oral mm
Neck-supple
CV-reg, no M, +S1/S2
Lungs-clear B/L
Abd-soft, tender without guarding or rebound
Ext-no edema
Musculoskeletal-no cyanosis, clubbing
Skin-warm and dry
Neuro-grossly non-focal
Psych-calm, cooperative
Recurrent acute pancreatitis -possibly triggered by dietary indiscretion. Ate a beef cheese steak prior to admission. CT scan shows acute pancreatitis with extensive peripancreatic inflammatory change surrounding the pancreatic head. No signs of
abscess formation or well-organized pseudocyst formation.
GI consulted. Previous IgG4 levels were normal.
She had a pancreatic stent placed 4 weeks ago in [place], reportedly came out 1 week ago as noted on abdominal x-ray. Evaluated by Dr. Hawthorne, will need outpatient follow-up.
Tolerating clear liquid diet so far. Advance diet when okay with GI.
Patient states Toradol did help her pain. Will try to minimize opiates. Resume gabapentin. Resume pancreatic enzymes when eating solids.
History of necrotizing pancreatitis -requiring necrosectomy in the past.
DM2 with hyperglycemia -she reports a hemoglobin A1c of 6.7% in August. Hemoglobin A1c 10.5% currently. New diagnosis of diabetes for her. Glucose 142 this morning, received 10 units of Lantus last night. Continue sliding scale insulin. Add
metformin. Daytime glucoses are controlled, likely can hold off on preprandial insulin for now. Seen by diabetes education. Encouraged weight loss to help manage her diabetes. Follow-up with Dr. Reilly her geriatric nursing assistant.
Hypokalemia -potassium improved. Magnesium normal.
Hyponatremia -present on admission. Improved.
Essential hypertension -stable.
History of Graves' disease, hypothyroidism -resume Synthroid when able.
Epilepsy -continue Keppra.
Chronic pain syndrome -due to chronic pancreatitis. She is on gabapentin and pancreatic enzymes.
Moderate persistent asthma -stable.
Obesity due to excess calories -weight loss encouraged.
Full code
Dispo -likely discharge Friday if stable. Close outpatient follow-up.
Anticipated Discharge: Within 24 hours
Subjective/Interval History
-
Date of Service: October 26, 2023
Patient seen and examined. Overall feeling better, less abdominal pain.
Objective Data
-
Labs:
Laboratory Results
10/26/23
07:02
Sodium 138
Potassium 3.6
Chloride 98
Carbon Dioxide 31 H
BUN 7
Creatinine 0.7
Glucose 158 H
Calcium 9.1
Total Bilirubin 0.8
AST 44 H
ALT 37 H
Alkaline Phosphatase 99
Vital Signs:
Vital Signs
Temp Pulse Resp BP Pulse Ox
97.8 F 73 16 120/78 99
10/26/23 07:57 10/26/23 07:57 10/26/23 07:57 10/26/23 07:57 10/26/23 07:57
I&O
10/25/23 10/26/23 10/27/23
06:59 06:59 06:59
Intake Total 2219 / 0 1560 / 1560
Balance 2219 / 2220 1560 / 1560
Review of Systems
-
History Source: Patient
All other systems: Reviewed and negative
[2023-10-26] MEDS: TYLENOL 650 MG PO (08:24)
[2023-10-26] MEDS: GLUCOPHAGE 500 MG PO ×2 (10:28→17:03)
[2023-10-26] MEDS: FLUSH (NSS) 2 FLUSH IV ×3 (10:29→17:16)
[2023-10-26] MEDS: DILAUDID 1 MG IV ×3 (10:29→21:29)
[2023-10-26 11:37] LABS: Glucose - Point of Care 160 mg/dl (70-99)
[2023-10-26] MEDS: NOVOLOG FLEXPEN-LOW RESISTANCE 1 UNITS SC ×2 (11:51→17:02)
[2023-10-26 15:42] VITALS: BP 119/74
--- NOTE | 2023-10-26 16:14 | W.PN.GI.CBS2 ---
Today's Communication / Plan
-
Low-fat diet, add Dulcolax for constipation
Assessment / Plan
-
63-year-old female with past medical history of recurrent idiopathic pancreatitis with history of necrosis and fluid collection requiring lams at [place] and pigtail stent in 04/2022 with necrosectomy and another lams stent on 09/2022 with removal
and cyst gastrectomy on 10/[address] Sanchez at [place] recurrent pancreatitis in 12/2022, 07/2023 with EUS/ERCP on 09/25/[address] Sanchez showing Pancreas divisum with minimally dilated and irregular dorsal pancreatic duct. Severe
parenchymal atrophy in the upstream body and tail. Small anechoic lesion in the pancreatic head. The patient had a biliary sphincterotomy and pancreatic sphincterotomy the dorsal duct was assessed via the minor papilla. The dorsal duct was mildly
dilated and irregular in the head of the pancreas then attenuated in the body and tail. Status post minor papillotomy and 4 [place] stent placement. The pancreatic duct stent is designed to dislodge spontaneously. Removal of remaining cyst
gastrostomy stent at that time. XR of abdomen on 10/16 shows no remaining pancreatic stent. Presents with acute onset of periumbilical pain, that radiates to the back after eating cheesesteak last evening. Lipase >4000. ALT/Alk Phos elevated. Patient
also with leukocytosis. Awaiting CT Abd/Pelvis. Has been started on LR at 250 hr with appropriate drop in Hgb and normalization of Lactic acid from 3.4 to 1.6.
Impression:
Acute pancreatitis
History of recurrent idiopathic pancreatitis with history of necrosis requiring necrosectomy in the past.
Recent episodes of Pancreatitis 12/2022, 04/2023, 07/2023
Pancreatic divisum
Diabetes with Hgb A1c 10.5
Plan
-Continue analgesia and antiemetics
-Incentive spirometer
-Follow up with Endocrine after DC
10/25/23 - improving
alternate toradol and APAP and dilaudid if severe
started gab[place]entin [place] [address] per meal
monitor kidney function
full liquid diet ok
possible d/c friday
patient concerned about insulin
10/26/2023 -no change from yesterday
Okay to use the Toradol once a day and alternate with Tylenol and Dilaudid
Continue Zenpep
Low-fat diet
Dulcolax for constipation
If she worsens may need repeat imaging, will discuss with Dr. Hawthorne tomorrow
Total Time Spent with Patient (in minutes): 25
Subjective
Subjective
Date of Service: October 26, 2023
Pain does not appear to be improving. Is not worsening. She still passing gas but not moving her bowels. No significant nausea or vomiting.
Objective
Data Reviewed
Laboratory Data:
Laboratory Results
10/25/23 06:38
10/26/23 07:02
Laboratory Results
Magnesium 1.8 mg/dl (1.6-2.3) 10/24/23 07:16
Total Bilirubin 0.8 mg/dl (0.2-1.3) 10/26/23 07:02
AST 44 U/L (14-36) H 10/26/23 07:02
ALT 37 U/L (0-35) H 10/26/23 07:02
Alkaline Phosphatase 99 U/L (38-126) 10/26/23 07:02
Lipase 501 U/L (23-300) H 10/24/23 07:16
Vital Signs and I&O:
Vital Signs
Temp Pulse Resp BP Pulse Ox
97.3 F 75 16 119/74 94
10/26/23 15:42 10/26/23 15:42 10/26/23 15:42 10/26/23 15:42 10/26/23 15:42
I&O
10/25/23 10/26/23 10/27/23
06:59 06:59 06:59
Intake Total 2220 / 2220 1560 / 1560
Balance 2219
Physical Exam
Physical Exam
HEENT: Anicteric
Pulmonary: Clear
GI: Soft, Tender and Normal Bowel Sounds
Extremities: No Edema
Neuro: Non Focal
[2023-10-26 16:47] LABS: Glucose - Point of Care 154 mg/dl (70-99)
[2023-10-26] MEDS: DULCOLAX 10 MG PO (17:03)
[2023-10-26] MEDS: LOVENOX 40 MG SC (17:06)
[2023-10-26 21:13] LABS: Glucose - Point of Care 166 mg/dl (70-99)
[2023-10-26] MEDS: ZYRTEC 10 MG PO (21:23)
[2023-10-26] MEDS: LANTUS 0.100000000000000006 UNITS SC (21:25)
[2023-10-26 21:47] VITALS: PULSE 80
[2023-10-26 23:28] VITALS: BP 115/73
[2023-10-27 04:29] VITALS: BMI 33.8
[2023-10-27] MEDS: SYNTHROID 100 MCG PO (05:38)
[2023-10-27] MEDS: DILAUDID 1 MG IV ×4 (05:38→15:07)
[2023-10-27 07:10] LABS: Glucose - Point of Care 161 mg/dl (70-99)
[2023-10-27 07:55] VITALS: BP 142/84
[2023-10-27] MEDS: NOVOLOG FLEXPEN-LOW RESISTANCE 1 UNITS SC ×2 (08:04→11:55)
[2023-10-27] MEDS: KEPPRA 500 MG PO ×2 (08:05→21:28)
[2023-10-27] MEDS: ZENPEP DELAYED RELEASE CAPSULE 4 CAPSULE PO ×3 (08:05→17:23)
[2023-10-27] MEDS: PROTONIX 40 MG PO (08:05)
[2023-10-27] MEDS: GLUCOPHAGE 500 MG PO (08:05)
[2023-10-27] MEDS: NEURONTIN 300 MG PO ×3 (08:06→21:29)
[2023-10-27] MEDS: NORVASC 10 MG PO (08:07)
--- NOTE | 2023-10-27 10:38 | W.PN.GI.CBS2 ---
Today's Communication / Plan
-
Continue current plan
Assessment / Plan
-
63-year-old female with past medical history of recurrent idiopathic pancreatitis with history of necrosis and fluid collection requiring lams at [place] and pigtail stent in 04/2022 with necrosectomy and another lams stent on 09/2022 with removal
and cyst gastrectomy on 10/[address] Sanchez at [place] recurrent pancreatitis in 12/2022, 07/2023 with EUS/ERCP on 09/25/[address] Sanchez showing Pancreas divisum with minimally dilated and irregular dorsal pancreatic duct. Severe
parenchymal atrophy in the upstream body and tail. Small anechoic lesion in the pancreatic head. The patient had a biliary sphincterotomy and pancreatic sphincterotomy the dorsal duct was assessed via the minor papilla. The dorsal duct was mildly
dilated and irregular in the head of the pancreas then attenuated in the body and tail. Status post minor papillotomy and 4 Italian stent placement. The pancreatic duct stent is designed to dislodge spontaneously. Removal of remaining cyst
gastrostomy stent at that time. XR of abdomen on 10/16 shows no remaining pancreatic stent. Presents with acute onset of periumbilical pain, that radiates to the back after eating cheesesteak last evening. Lipase >4000. ALT/Alk Phos elevated. Patient
also with leukocytosis. Awaiting CT Abd/Pelvis. Has been started on LR at 250 hr with appropriate drop in Hgb and normalization of Lactic acid from 3.4 to 1.6.
Impression:
Acute pancreatitis
History of recurrent idiopathic pancreatitis with history of necrosis requiring necrosectomy in the past.
Recent episodes of Pancreatitis 12/2022, 04/2023, 07/2023
Pancreatic divisum
Diabetes with Hgb A1c 10.5
Plan
-Continue analgesia and antiemetics
-Incentive spirometer
-Follow up with Endocrine after DC
10/25/23 - improving
alternate toradol and APAP and dilaudid if severe
started [place] [address] per meal
monitor kidney function
full liquid diet ok
possible d/c friday
patient concerned about insulin
10/26/2023 -no change from yesterday
Okay to use the Toradol once a day and alternate with Tylenol and Dilaudid
Continue Zenpep
Low-fat diet
Dulcolax for constipation
If she worsens may need repeat imaging, will discuss with Dr. Hawthorne tomorrow
10/27/2023
Continue Gabapentin, Zenpep
Continue Low Fat diet
Subjective
Subjective
Date of Service: October 27, 2023
Patient states that she is feeling a little better. Tolerating a low fat diet. Still with some pain, pancreatic enzymes late yesterday with eating. Patient did have constipation but was given Dulcolax and had BM. She was also started on Metformin on
10/26, she now has loose stools. Discussed this can also be caused by Metformin as well.
Objective
Data Reviewed
Laboratory Data:
Laboratory Results
10/25/23 06:38
10/26/23 07:02
Laboratory Results
Magnesium 1.8 mg/dl (1.6-2.3) 10/24/23 07:16
Total Bilirubin 0.8 mg/dl (0.2-1.3) 10/26/23 07:02
AST 44 U/L (14-36) H 10/26/23 07:02
ALT 37 U/L (0-35) H 10/26/23 07:02
Alkaline Phosphatase 99 U/L (38-126) 10/26/23 07:02
Lipase 501 U/L (23-300) H 10/24/23 07:16
Vital Signs and I&O:
Vital Signs
Temp Pulse Resp BP Pulse Ox
97.7 F 70 18 142/84 96
10/27/23 07:55 10/27/23 08:07 10/27/23 07:55 10/27/23 08:07 10/27/23 07:55
I&O
10/26/23 10/27/23 10/28/23
06:59 06:59 06:59
Intake Total 1560 / 1560 960 / 960
Balance 1560 / 1560 960 / 960
Physical Exam
Physical Exam
HEENT: Anicteric
Cardiology: Normal Sinus Rhythm
Pulmonary: Clear
GI: Soft, Non Distended, Tender (periumbilical (improved from prior)) and Normal Bowel Sounds
Extremities: No Edema
Neuro: Non Focal
--- NOTE | 2023-10-27 11:02 | CM ---
Patient seen with , patient is hopeful to go home. IMM reviewed, signed, placed in patients chart. to provide transportation home. CM will continue to follow for discharge planning needs.
Plan; home no needs when stable.
[2023-10-27 11:46] LABS: Glucose - Point of Care 192 mg/dl (70-99)
--- NOTE | 2023-10-27 15:07 | W.PN.HOSP.TC ---
Today's Communication/Plan
-
Change to clears due to the pain
Check labs in am
Assessment / Plan
Assessment / Plan
CVS: S1-S2 normal
Chest: CTA B/L
Abdomen: mild tenderness epigastric area
Extremities: No edema, normal pulses
LEAD SUSTAINABILITY SPECIALIST: Non focal exam
#Recurrent acute pancreatitis -
CT scan shows acute pancreatitis with extensive peripancreatic inflammatory change surrounding the pancreatic head. No signs of abscess formation or well-organized pseudocyst formation.
GI consulted. Previous IgG4 levels were normal.
She had a pancreatic stent placed 4 weeks ago in [place], reportedly came out 1 week ago as noted on abdominal x-ray. Evaluated by Dr. Hawthorne, will need outpatient follow-up.
Patient has more pain after diet was advanced to low-fat diet. Go back to clear liquids.
Patient states Toradol did help her pain. Will try to minimize opiates. Resumed gabapentin. Resume pancreatic enzymes when eating solids.
#History of necrotizing pancreatitis -requiring necrosectomy in the past.
#DM2 with hyperglycemia -she reports a hemoglobin A1c of 6.7% in August. Hemoglobin A1c 10.5% currently. New diagnosis of diabetes for her.
Continue sliding scale insulin. Metformin added, Lantus 10 HS
Daytime glucoses are controlled, likely can hold off on preprandial insulin for now. Seen by diabetes education. Encouraged weight loss to help manage her diabetes.
Follow-up with Dr. Reilly her parquet floor layer.
#Hypokalemia -potassium improved. Magnesium normal.
#Hyponatremia -present on admission. Improved.
#Essential hypertension -continue Norvasc, Aldactone
#History of Graves' disease, hypothyroidism -resume Synthroid when able.
#Epilepsy -continue Keppra.
#Chronic pain syndrome -due to chronic pancreatitis. She is on gabapentin and pancreatic enzymes.
#Moderate persistent asthma -stable.
#Obesity due to excess calories -weight loss encouraged.
# History of migraines
# History of parathyroidectomy for hyperparathyroidism
# Sleep apnea-continue CPAP
# History of IBS/history of celiac disease
# History of retinal detachment
#Full code
D/W RN
D/W Family at bed side
Anticipated Discharge: Within 24 hours
Subjective/Interval History
-
Date of Service: October 27, 2023
Objective Data
-
Vital Signs:
Vital Signs
Temp Pulse Resp BP Pulse Ox
97.7 F 70 18 142/84 96
10/27/23 07:55 10/27/23 08:07 10/27/23 07:55 10/27/23 08:07 10/27/23 07:55
I&O
10/26/23 10/27/23 10/28/23
06:59 06:59 06:59
Intake Total 1560 / 1560 960 / 960
Balance 1560 / 1560 960 / 960
[2023-10-27 15:55] VITALS: BP 127/58
[2023-10-27 16:01] LABS: ALT (SGPT) 48 U/L (0-35); AST (SGOT) 55 U/L (14-36); Albumin 3.7 g/dl (3.5-5.0); Alkaline Phosphatase 90 U/L (38-126); Blood Urea Nitrogen 10 mg/dl (7-17); Calcium 9.3 mg/dl (8.4-10.2); Carbon Dioxide 32 mmol/L (22-30); Chloride 98 mmol/L (98-107); Estimated Creatinine Clearance 84 ml/min; Glucose 151 mg/dl (70-99); Potassium 3.8 mmol/L (3.5-5.1); Sodium 137 mmol/L (135-145); Total Bilirubin 0.6 mg/dl (0.2-1.3); Total Protein 6.5 g/dl (6.3-8.2); eGFR > 60.00
[2023-10-27 16:30] LABS: Glucose - Point of Care 147 mg/dl (70-99)
--- NOTE | 2023-10-27 17:07 | W.PN.GI.CBS2 ---
Today's Communication / Plan
-
-- CT scan with IV contrast
-- Check CRP in the morning with CMP
Assessment / Plan
-
63-year-old female with past medical history of recurrent idiopathic pancreatitis with history of necrosis and fluid collection requiring lams at [place] and pigtail stent in 04/2022 with necrosectomy and another lams stent on 09/2022 with removal
and cyst gastrectomy on 10/[address] Sanchez at [place] recurrent pancreatitis in 12/2022, 07/2023 with EUS/ERCP on 09/25/[address] Sanchez showing Pancreas divisum with minimally dilated and irregular dorsal pancreatic duct. Severe
parenchymal atrophy in the upstream body and tail. Small anechoic lesion in the pancreatic head. The patient had a biliary sphincterotomy and pancreatic sphincterotomy the dorsal duct was assessed via the minor papilla. The dorsal duct was mildly
dilated and irregular in the head of the pancreas then attenuated in the body and tail. Status post minor papillotomy and 4 Welsh stent placement. The pancreatic duct stent is designed to dislodge spontaneously. Removal of remaining cyst
gastrostomy stent at that time. XR of abdomen on 10/16 shows no remaining pancreatic stent. Presents with acute onset of periumbilical pain, that radiates to the back after eating cheesesteak last evening. Lipase >4000. ALT/Alk Phos elevated. Patient
also with leukocytosis. Awaiting CT Abd/Pelvis. Has been started on LR at 250 hr with appropriate drop in Hgb and normalization of Lactic acid from 3.4 to 1.6.
Impression:
Acute pancreatitis
History of recurrent idiopathic pancreatitis with history of necrosis requiring necrosectomy in the past.
Recent episodes of Pancreatitis 12/2022, 04/2023, 07/2023
Pancreatic divisum
Diabetes with Hgb A1c 10.5
Plan
-Continue analgesia and antiemetics
-Incentive spirometer
-Follow up with Endocrine after DC
10/25/23 - improving
alternate toradol and APAP and dilaudid if severe
[place] [address] per meal
monitor kidney function
full liquid diet ok
possible d/c friday
patient concerned about insulin
10/26/2023 -no change from yesterday
Okay to use the Toradol once a day and alternate with Tylenol and Dilaudid
Continue Zenpep
Low-fat diet
Dulcolax for constipation
If she worsens may need repeat imaging, will discuss with Dr. Hawthorne tomorrow
10/27/2023 -pain is worsening and more diffuse, more to the right side
Continue Gabapentin, Zenpep, pain control
Went back to clear liquid diet
Put patient back in for CT scan abdomen with IV contrast
Discussed with Dr. Hawthorne
Total Time Spent with Patient (in minutes): 25
Subjective
Subjective
Date of Service: October 27, 2023
Patient states pain is worse today. She did have pain after each meal. She had 3 loose stools last night. She is able to pass gas. Denies any nausea or vomiting. Feels more bloated today
Objective
Data Reviewed
Laboratory Data:
Laboratory Results
10/25/23 06:38
10/27/23 15:30
Laboratory Results
Magnesium 1.8 mg/dl (1.6-2.3) 10/24/23 07:16
Total Bilirubin 0.6 mg/dl (0.2-1.3) 10/27/23 15:30
AST 55 U/L (14-36) H 10/27/23 15:30
ALT 48 U/L (0-35) H 10/27/23 15:30
Alkaline Phosphatase 90 U/L (38-126) 10/27/23 15:30
Lipase 501 U/L (23-300) H 10/24/23 07:16
Vital Signs and I&O:
Vital Signs
Temp Pulse Resp BP Pulse Ox
98.5 F 74 18 127/58 98
10/27/23 15:55 10/27/23 15:55 10/27/23 15:55 10/27/23 15:55 10/27/23 15:55
I&O
10/26/23 10/27/23 10/28/23
06:59 06:59 06:59
Intake Total 1560 / 1560 960 / 960
Balance 1560 / 1560 960 / 960
Physical Exam
Physical Exam
HEENT: Anicteric
GI: Soft, Distended (Patient is more distended today. Positive but hypoactive bowel sounds) and Tender
[2023-10-27] MEDS: NOVOLOG FLEXPEN-LOW RESISTANCE SC (17:13)
[2023-10-27] MEDS: GLUCOPHAGE PO (17:20)
[2023-10-27] MEDS: LOVENOX 40 MG SC (17:23)
[2023-10-27] MEDS: SOLU-CORTEF 200 MG IV (18:55)
[2023-10-27] MEDS: TORADOL 10 MG IV (19:01)
[2023-10-27 21:19] LABS: Glucose - Point of Care 176 mg/dl (70-99)
[2023-10-27] MEDS: LANTUS 0.100000000000000006 UNITS SC (21:28)
[2023-10-27] MEDS: ZYRTEC 10 MG PO (21:29)
[2023-10-27 22:29] VITALS: PULSE 75
[2023-10-27 23:52] VITALS: BP 124/67
[2023-10-28] MEDS: SOLU-CORTEF 200 MG IV ×2 (01:10→06:29)
[2023-10-28] MEDS: TORADOL 10 MG IV ×3 (01:11→12:31)
[2023-10-28 06:00] VITALS: BMI 33.9
[2023-10-28] MEDS: SYNTHROID 100 MCG PO (06:27)
[2023-10-28] MEDS: BENADRYL 50 MG IV (06:27)
[2023-10-28 07:16] LABS: Glucose - Point of Care 228 mg/dl (70-99)
[2023-10-28] MEDS: ZENPEP DELAYED RELEASE CAPSULE 4 CAPSULE PO ×3 (07:49→17:12)
[2023-10-28] MEDS: KEPPRA 500 MG PO ×2 (07:49→22:02)
[2023-10-28] MEDS: NEURONTIN 300 MG PO ×3 (07:50→22:03)
[2023-10-28] MEDS: PROTONIX 40 MG PO (07:50)
[2023-10-28] MEDS: GLUCOPHAGE 500 MG PO ×2 (07:50→17:09)
[2023-10-28] MEDS: NORVASC 10 MG PO (07:51)
[2023-10-28] MEDS: NOVOLOG FLEXPEN-LOW RESISTANCE 2 UNITS SC ×3 (07:52→17:10)
[2023-10-28 07:55] VITALS: BP 124/85
[2023-10-28 08:24] LABS: ALT (SGPT) 60 U/L (0-35); AST (SGOT) 60 U/L (14-36); Alkaline Phosphatase 112 U/L (38-126); Blood Urea Nitrogen 12 mg/dl (7-17); Calcium 8.8 mg/dl (8.4-10.2); Carbon Dioxide 24 mmol/L (22-30); Chloride 104 mmol/L (98-107); Estimated Creatinine Clearance 98 ml/min; Glucose 227 mg/dl (70-99); Potassium 4.2 mmol/L (3.5-5.1); Sodium 134 mmol/L (135-145); Total Bilirubin 0.7 mg/dl (0.2-1.3); Total Protein 6.6 g/dl (6.3-8.2); eGFR > 60.00
--- NOTE | 2023-10-28 09:07 | CM ---
CM spoke with [facility], obtained cost of Lantus: $96.46 for 3 months. CM will update patient, will follow for discharge planning needs.
Plan; home no needs.
--- NOTE | 2023-10-28 09:36 | W.PN.GI.CBS2 ---
Addendum entered and electronically signed by Michelle Hicks MD 10/28/23 17:27:
I saw and examined the patient.
The GYM INSTRUCTOR's note was reviewed and I agree with the note.
Comment: Recurrent acute on chronic pancreatitis pain is slightly improved today repeat CT yesterday shows improvement with no evidence of necrosis. She did have most recently an EUS and ERCP with Dr. Sanchez on 09/25/2023 for Pancreas Divisum she
had a biliary sphincterotomy and pancreatic sphincterotomy also status post minor papillotomy and a stent placement. Advanced diet to low-fat diet and if able to tolerate diet will resume her gabapentin. Discussed with Dr. Al patient to be
discharged on metformin and Lantus for newly diagnosed diabetes most likely secondary to recurrent pancreatitis she said that she may not be a good candidate for tramadol upon DC since it may decrease her seizure threshold may need short-term
narcotics for pain control. Will also resume Zenpep when able to tolerate p.o. intake. If improves possible DC in AM.
Original Note:
Today's Communication / Plan
-
s/p repeat CT this am with stable finding and partial resolution of pancreatitis
etiology of recurrent episodes unclear
some increased pain last PM now improving
still required IV Dilaudid and tordol 10/27
CRP 261.6 10/26 and 29.1 today
will reattempted ADA low fat diet
cont Zenpep [address] dey reviewed with Dr. Hawthorne 10/27
for OP genetic testing
Assessment / Plan
-
63-year-old female with past medical history of recurrent idiopathic pancreatitis with history of necrosis and fluid collection requiring lams at [place] and pigtail stent in 04/2022 with necrosectomy and another lams stent on 09/2022 with removal
and cyst gastrectomy on 10/[address] Sanchez at [place] recurrent pancreatitis in 12/2022, 07/2023 with EUS/ERCP on 09/25/[address] Sanchez showing Pancreas divisum with minimally dilated and irregular dorsal pancreatic duct. Severe
parenchymal atrophy in the upstream body and tail. Small anechoic lesion in the pancreatic head. The patient had a biliary sphincterotomy and pancreatic sphincterotomy the dorsal duct was assessed via the minor papilla. The dorsal duct was mildly
dilated and irregular in the head of the pancreas then attenuated in the body and tail. Status post minor papillotomy and 4 [place]ian stent placement. The pancreatic duct stent is designed to dislodge spontaneously. Removal of remaining cyst
gastrostomy stent at that time. XR of abdomen on 10/16 shows no remaining pancreatic stent. Presents with acute onset of periumbilical pain, that radiates to the back after eating cheesesteak.On admission Lipase >4000. ALT/Alk Phos elevated. Patient
also with leukocytosis. Awaiting CT Abd/Pelvis
10/28/23 CT a/p with IV contrast
1). Significant partial but incomplete resolution of pancreatitis with mild hazy groundglass inflammatory stranding around the head and neck and uncinate process of the pancreas
2). The stability of the 6 mm left lobe pulmonary nodule suggests probable benign etiology
3). Diffuse fatty infiltration of the liver
4). Stable hepatic cysts
5). Cholecystectomy
Impression:
Acute pancreatitis
History of recurrent idiopathic pancreatitis with history of necrosis requiring necrosectomy in the past.
Recent episodes of Pancreatitis 12/2022, 04/2023, 07/2023
Pancreatic divisum
Diabetes with Hgb A1c 10.5
Plan:
s/p repeat CT this am with stable finding and partial resolution of pancreatitis
etiology of recurrent episodes unclear
some increased pain last PM now improving
still required IV Dilaudid and tordol 10/27
CRP 261.6 10/26 and 29.1 today
will reattempted ADA low fat diet
cont Zenpep [address] dey reviewed with Dr. Hawthorne 10/27
for OP genetic testing
Subjective
Subjective
Date of Service: October 28, 2023
on clear diet, some worsening right sided pain last PM now improved today
Objective
Data Reviewed
Laboratory Data:
Laboratory Results
10/25/23 06:38
10/28/23 07:21
Laboratory Results
Magnesium 1.8 mg/dl (1.6-2.3) 10/24/23 07:16
Total Bilirubin 0.7 mg/dl (0.2-1.3) 10/28/23 07:21
AST 60 U/L (14-36) H 10/28/23 07:21
ALT 60 U/L (0-35) H 10/28/23 07:21
Alkaline Phosphatase 112 U/L (38-126) 10/28/23 07:21
Lipase 501 U/L (23-300) H 10/24/23 07:16
Vital Signs and I&O:
Vital Signs
Temp Pulse Resp BP Pulse Ox
98.2 F 77 18 124/85 96
10/28/23 07:55 10/28/23 07:55 10/28/23 07:55 10/28/23 07:55 10/28/23 07:55
I&O
10/27/23 10/28/23 10/29/23
06:59 06:59 06:59
Intake Total 960 / 960 1760 / 1760
Balance 960 / 960 1760 / 1760
Physical Exam
Physical Exam
HEENT: Anicteric and Moist mucous membranes
Cardiology: Normal Sinus Rhythm
Pulmonary: Clear
GI: Soft, Non Distended and Tender (epigastric tenderness)
Extremities: No Edema
Neuro: Non Focal
[2023-10-28 11:51] LABS: Glucose - Point of Care 234 mg/dl (70-99)
[2023-10-28 12:03] VITALS: BP 126/72
[2023-10-28 15:55] VITALS: BP 153/88
--- NOTE | 2023-10-28 15:58 | W.PN.HOSP.TC ---
Today's Communication/Plan
-
If patient tolerates diet discharge tomorrow.
Assessment / Plan
Assessment / Plan
CVS: S1-S2 normal
Chest: CTA B/L
Abdomen: mild tenderness epigastric area
Extremities: No edema, normal pulses
PHYSICIAN ANESTHESIOLOGIST: Non focal exam
Repeat CT of the abdomen-significant partial but incomplete resolution of pancreatitis with mild hazy groundglass inflammatory stranding around the head and neck of the uncinate process of the pancreas. Stability of the 6 mm left lower lobe
pulmonary nodule suggest benign etiology. Diffuse fatty infiltration of the liver, stable hepatic cyst, cholecystectomy
#Recurrent acute pancreatitis -
CT scan shows acute pancreatitis with extensive peripancreatic inflammatory change surrounding the pancreatic head. No signs of abscess formation or well-organized pseudocyst formation.
GI consulted. Previous IgG4 levels were normal.
She had a pancreatic stent placed 4 weeks ago in [place], reportedly came out 1 week ago as noted on abdominal x-ray. Evaluated by Dr. Hawthorne, will need outpatient follow-up.
Pain better. Diet restarted.
#History of necrotizing pancreatitis -requiring necrosectomy in the past.
# Elevated LFTs likely secondary to fatty liver
#DM2 with hyperglycemia -she reports a hemoglobin A1c of 6.7% in August. Hemoglobin A1c 10.5% currently. New diagnosis of diabetes for her.
Continue sliding scale insulin. Metformin added, Lantus 10 HS
Daytime glucoses are controlled, likely can hold off on preprandial insulin for now. Seen by diabetes education. Encouraged weight loss to help manage her diabetes.
Follow-up with Dr. Reilly her tooling mechanic.
#Hypokalemia -potassium improved. Magnesium normal.
#Hyponatremia -present on admission. Improved.
#Essential hypertension -continue Norvasc, Aldactone
#History of Graves' disease, hypothyroidism -resume Synthroid when able.
#Epilepsy -continue Keppra.
#Chronic pain syndrome -due to chronic pancreatitis. She is on gabapentin and pancreatic enzymes.
#Moderate persistent asthma -stable.
#Obesity due to excess calories -weight loss encouraged.
# History of migraines
# History of parathyroidectomy for hyperparathyroidism
# Sleep apnea-continue CPAP
# History of IBS/history of celiac disease
# History of retinal detachment
#Full code
D/W RN
D/W Family at bed side
Anticipated Discharge: Within 24 hours
Subjective/Interval History
-
Date of Service: October 28, 2023
Objective Data
-
Labs:
Laboratory Results
10/28/23
07:21
Sodium 134 L
Potassium 4.2
Chloride 104
Carbon Dioxide 24
BUN 12
Creatinine 0.6
Glucose 227 H
Calcium 8.8
Total Bilirubin 0.7
AST 60 H
ALT 60 H
Alkaline Phosphatase 112
Vital Signs:
Vital Signs
Temp Pulse Resp BP Pulse Ox
98.2 F 84 16 126/72 99
10/28/23 12:03 10/28/23 12:03 10/28/23 12:03 10/28/23 12:03 10/28/23 12:03
I&O
10/27/23 10/28/23 10/29/23
06:59 06:59 06:59
Intake Total 960 / 960 1760 / 1760
Balance 960 / 960 1760 / 1760
--- NOTE | 2023-10-28 16:13 | CM ---
CM reviewed chart, per Hospitalist, possible discharge tomorrow. CM will continue to follow for discharge planning needs.
Plan; home no needs anticipated.
[2023-10-28 16:50] LABS: Glucose - Point of Care 230 mg/dl (70-99)
[2023-10-28] MEDS: ROXICODONE 5 MG PO ×2 (17:09→23:12)
[2023-10-28] MEDS: LOVENOX 40 MG SC (17:14)
[2023-10-28 21:09] LABS: Glucose - Point of Care 264 mg/dl (70-99)
[2023-10-28] MEDS: LANTUS 0.100000000000000006 UNITS SC (22:03)
[2023-10-28] MEDS: ZYRTEC 10 MG PO (22:03)
[2023-10-28 23:55] VITALS: BP 135/73
[2023-10-29] MEDS: SYNTHROID 100 MCG PO (05:50)
[2023-10-29 06:00] VITALS: BMI 33.9
[2023-10-29] MEDS: ROXICODONE 5 MG PO ×2 (06:50→14:31)
[2023-10-29 07:00] VITALS: BP 140/76
[2023-10-29 08:11] LABS: Glucose - Point of Care 144 mg/dl (70-99)
[2023-10-29 08:28] LABS: ALT (SGPT) 50 U/L (0-35); AST (SGOT) 44 U/L (14-36); Albumin 3.6 g/dl (3.5-5.0); Alkaline Phosphatase 99 U/L (38-126); Blood Urea Nitrogen 13 mg/dl (7-17); Calcium 8.7 mg/dl (8.4-10.2); Carbon Dioxide 27 mmol/L (22-30); Chloride 103 mmol/L (98-107); Estimated Creatinine Clearance 84 ml/min; Glucose 164 mg/dl (70-99); Potassium 3.4 mmol/L (3.5-5.1); Sodium 135 mmol/L (135-145); Total Bilirubin 0.5 mg/dl (0.2-1.3); Total Protein 6.1 g/dl (6.3-8.2); eGFR > 60.00
[2023-10-29] MEDS: ZENPEP DELAYED RELEASE CAPSULE 4 CAPSULE PO ×2 (08:55→11:26)
[2023-10-29] MEDS: NOVOLOG FLEXPEN-LOW RESISTANCE SC (09:03)
[2023-10-29] MEDS: NEURONTIN 300 MG PO ×2 (09:07→16:13)
[2023-10-29] MEDS: KEPPRA 500 MG PO (09:07)
[2023-10-29] MEDS: GLUCOPHAGE 500 MG PO (09:07)
[2023-10-29] MEDS: NORVASC 10 MG PO (09:07)
[2023-10-29] MEDS: PROTONIX 40 MG PO (09:08)
--- NOTE | 2023-10-29 10:31 | W.PN.GI.CBS2 ---
Today's Communication / Plan
-
continue current meds and low fat diet
Assessment / Plan
-
63-year-old female with past medical history of recurrent idiopathic pancreatitis with history of necrosis and fluid collection requiring lams at [place] and pigtail stent in 04/2022 with necrosectomy and another lams stent on 09/2022 with removal
and cyst gastrectomy on 10/[address] Sanchez at [place] recurrent pancreatitis in 12/2022, 07/2023 with EUS/ERCP on 09/25/[address] Sanchez showing Pancreas divisum with minimally dilated and irregular dorsal pancreatic duct. Severe
parenchymal atrophy in the upstream body and tail. Small anechoic lesion in the pancreatic head. The patient had a biliary sphincterotomy and pancreatic sphincterotomy the dorsal duct was assessed via the minor papilla. The dorsal duct was mildly
dilated and irregular in the head of the pancreas then attenuated in the body and tail. Status post minor papillotomy and 4 [place] stent placement. The pancreatic duct stent is designed to dislodge spontaneously. Removal of remaining cyst
gastrostomy stent at that time. XR of abdomen on 10/16 shows no remaining pancreatic stent. Presents with acute onset of periumbilical pain, that radiates to the back after eating cheesesteak.On admission Lipase >4000. ALT/Alk Phos elevated. Patient
also with leukocytosis. Awaiting CT Abd/Pelvis
10/28/23 CT a/p with IV contrast
1). Significant partial but incomplete resolution of pancreatitis with mild hazy groundglass inflammatory stranding around the head and neck and uncinate process of the pancreas
2). The stability of the 6 mm left lobe pulmonary nodule suggests probable benign etiology
3). Diffuse fatty infiltration of the liver
4). Stable hepatic cysts
5). Cholecystectomy
Impression:
Acute pancreatitis
History of recurrent idiopathic pancreatitis with history of necrosis requiring necrosectomy in the past.
Recent episodes of Pancreatitis 12/2022, 04/2023, 07/2023
Pancreatic divisum
Diabetes with Hgb A1c 10.5
Plan:
s/p repeat CT 10/28 with stable finding and partial resolution of pancreatitis
etiology of recurrent episodes unclear
pain improved
low fat diet - tolerated
cont Zenpep 4 cap with meals
for OP genetic testing
has appt with Dr. Hawthorne 11/21/23
Discussed with patient to also try to move up her appointment with her PCP after DC, given new onset of diabetes currently on metformin and Lantus
OK to DC home today
Subjective
Subjective
Date of Service: October 29, 2023
Pain is improved and she is tolerating low-fat diet. She has not had any further episodes of diarrhea, Last bowel movement was on the
Objective
Data Reviewed
Laboratory Data:
Laboratory Results
10/25/23 06:38
10/29/23 06:45
Laboratory Results
Magnesium 1.8 mg/dl (1.6-2.3) 10/24/23 07:16
Total Bilirubin 0.5 mg/dl (0.2-1.3) 10/29/23 06:45
AST 44 U/L (14-36) H 10/29/23 06:45
ALT 50 U/L (0-35) H 10/29/23 06:45
Alkaline Phosphatase 99 U/L (38-126) 10/29/23 06:45
Lipase 501 U/L (23-300) H 10/24/23 07:16
Vital Signs and I&O:
Vital Signs
Temp Pulse Resp BP Pulse Ox
97.6 F 72 18 140/76 96
10/29/23 07:00 10/29/23 07:00 10/29/23 07:00 10/29/23 07:00 10/29/23 07:00
I&O
10/28/23 10/29/23 10/30/23
06:59 06:59 06:59
Intake Total 1760 / 1760 1080 / 1080
Balance 1760 / 1760 1080 / 1080
Physical Exam
Physical Exam
Cardiology: Normal Sinus Rhythm
Pulmonary: Clear
GI: Soft, Non Distended and Tender (mild epigastric tenderness)
[2023-10-29] MEDS: KCL 40 MEQ PO (10:39)
--- NOTE | 2023-10-29 11:54 | CM ---
Patient seen with , discussed cost of Lantus. Patient inquiring if script is needed for test strips, TT sent to Hospitalist, Hospitalist will provide script. IMM signed, placed in patients chart. CM will continue to follow for discharge
planning needs.
Plan; home no needs.
[2023-10-29 11:59] LABS: Glucose - Point of Care 200 mg/dl (70-99)
[2023-10-29] MEDS: NOVOLOG FLEXPEN-LOW RESISTANCE 2 UNITS SC (12:18)
[2023-10-29 15:28] VITALS: BP 124/77
--- NOTE | 2023-10-29 15:38 | W.[place]-PDMP ---
[place]PD[place]
-
Checked the [place]- Prescription Drug Monitoring Program website, no red flags identified; safe to proceed with prescription.
--- NOTE | 2023-10-29 16:10 | W.PN.HOSP.TC ---
Today's Communication/Plan
-
Discharge
Assessment / Plan
Assessment / Plan
CVS: S1-S2 normal
Chest: CTA B/L
Abdomen: mild tenderness epigastric area
Extremities: No edema, normal pulses
AUTOMATIC CORN GRINDER OPERATOR: Non focal exam
Repeat CT of the abdomen-significant partial but incomplete resolution of pancreatitis with mild hazy groundglass inflammatory stranding around the head and neck of the uncinate process of the pancreas. Stability of the 6 mm left lower lobe
pulmonary nodule suggest benign etiology. Diffuse fatty infiltration of the liver, stable hepatic cyst, cholecystectomy
#Recurrent acute pancreatitis -
CT scan shows acute pancreatitis with extensive peripancreatic inflammatory change surrounding the pancreatic head. No signs of abscess formation or well-organized pseudocyst formation.
GI consulted. Previous IgG4 levels were normal.
She had a pancreatic stent placed 4 weeks ago in [place], reportedly came out 1 week ago as noted on abdominal x-ray. Evaluated by Dr. Hawthorne, will need outpatient follow-up.
Pain better. Diet restarted, tolerating
Cant use NSAIDS
Will do oxycodone for a few days- warned about Constipation.
#History of necrotizing pancreatitis -requiring necrosectomy in the past.
# Elevated LFTs likely secondary to fatty liver. OP Follow up
#DM2 with hyperglycemia -she reports a hemoglobin A1c of 6.7% in August. Hemoglobin A1c 10.5% currently. New diagnosis of diabetes for her.
Continue sliding scale insulin. Metformin added, Lantus 10 HS
Daytime glucoses are controlled, likely can hold off on preprandial insulin for now. Seen by diabetes education. Encouraged weight loss to help manage her diabetes.
Follow-up with Dr. Reilly her ordnance officer.
#Hypokalemia -potassium replaced. Magnesium normal.
#Hyponatremia -present on admission. Improved.
#Essential hypertension -continue Norvasc, restart Aldactone
#History of Graves' disease, hypothyroidism -resume Synthroid when able.
#Epilepsy -continue Keppra.
#Chronic pain syndrome -due to chronic pancreatitis. She is on gabapentin and pancreatic enzymes.
#Moderate persistent asthma -stable.
#Obesity due to excess calories -weight loss encouraged.
# History of migraines
# History of parathyroidectomy for hyperparathyroidism
# Sleep apnea-continue CPAP
# History of IBS/history of celiac disease
# History of retinal detachment
#Full code
D/W RN
D/W Family at bed side
DW GI
Discharge time 34 min
Anticipated Discharge: Today
Subjective/Interval History
-
Date of Service: October 29, 2023
Objective Data
-
Labs:
Laboratory Results
10/29/23
06:45
Sodium 135
Potassium 3.4 L
Chloride 103
Carbon Dioxide 27
BUN 13
Creatinine 0.7
Glucose 164 H
Calcium 8.7
Total Bilirubin 0.5
AST 44 H
ALT 50 H
Alkaline Phosphatase 99
Vital Signs:
Vital Signs
Temp Pulse Resp BP Pulse Ox
97.7 F 77 18 124/77 96
10/29/23 15:28 10/29/23 15:28 10/29/23 15:28 10/29/23 15:28 10/29/23 15:28
I&O
10/28/23 10/29/23 10/30/23
06:59 06:59 06:59
Intake Total 1760 / 1760 1080 / 1080
Balance 1760 / 1760 1080 / 1080
--- NOTE | 2023-10-29 16:12 | W.DS.TRANS ---
Addendum entered and electronically signed by Roby Al MD 10/29/23 17:31:
Dictation- [id number]
Original Note:
DC Summary - Head Mechanic
-
Discharge Instructions:
Discharge Diagnosis/Procedures Recurrent pancreatitis, elevated liver tests,
diabetes, low sodium and potassium, hypertension
, hypothyroidism, epilepsy, history of migraines
, sleep apnea
Diet Low Fat,Diabetic, Carb Controlled
Activity As tolerated
Driving Restrictions As prior to admission
Blood Work Outpatient genetic testing
Instructions:
Stand-Alone Forms:
Changes to Home Medications: Yes
Discharge Medications:
DC Medications w/original date entered in [facility]
albuterol sulfate 90 mcg/actuation aerosol inhaler (Ventolin HFA) 2 puff inhalation R Q4HPRN PRN sob/wheezing 07/21/21
amlodipine 10 mg tablet 10 mg PO DAILY Blood pressure 07/21/21
cetirizine 10 mg tablet 10 mg PO HS Allergies 07/21/21
spironolactone 25 mg tablet 25 mg PO DAILY Fluid retention/Swelling 07/21/21
levetiracetam 500 mg tablet (Keppra) 500 mg PO BID Neurological Condition 04/15/22
pantoprazole 40 mg tablet,delayed release 40 mg PO DAILY Gastrointestinal issue 04/15/22
biotin 1 mg capsule 1 mg PO DAILY Supplement 01/08/23
gabapentin 300 mg capsule 300 mg PO TID Pain 07/06/23
djwvcd-tqtwdjce-dzlggtf 40,000-126,000-168,000 unit capsule, delay rel (Zenpep) 1 cap PO MEALS Pancreatitis 07/06/23
famotidine-Ca carb-mag hydrox 10 mg-800 mg-165 mg chewable tablet (Pepcid Complete) 1 tab PO DAILY@1900 10/22/23
levothyroxine 100 mcg tablet 100 mcg PO DAILY 10/22/23
okgovg-dorveenk-eennqfe 40,000-126,000-168,000 unit capsule, delay rel (Zenpep) 1 cap PO DAILY PRN snack 10/22/23
insulin glargine 100 unit/mL (3 mL) subcutaneous pen (Lantus Solostar U-100 Insulin) 10 unit (0.1 mL) SC QPM Diabetes #15 mL 10/27/23
blood sugar diagnostic (Accu-Chek Guide test strips) #200 ea 10/29/23
lancets (Accu-Chek Softclix Lancets) #200 ea 10/29/23
metformin 500 mg tablet 500 mg PO BID@0800,1700 Diabetes #60 tabs 10/29/23
oxycodone 5 mg tablet 5 mg PO Q6HPRN PRN moderate pain #20 tabs 10/29/23
pen needle, diabetic 32 gauge x 532' (BD Ultra-Fine [place]onda Pen Needle) #200 ea 10/29/23
sennosides 8.6 mg capsule (senna) 8.6 mg PO HS PRN When you take Oxycodone #30 caps 10/29/23
Home Medication Changes
new
insulin glargine 100 unit/mL (3 mL) subcutaneous pen (Lantus Solostar U-100 Insulin) 10 unit (0.1 mL) SC QPM Diabetes #15 mL 10/27/23
blood sugar diagnostic (Accu-Chek Guide test strips) #200 ea 10/29/23
lancets (Accu-Chek Softclix Lancets) #200 ea 10/29/23
metformin 500 mg tablet 500 mg PO BID@0800,1700 Diabetes #60 tabs 10/29/23
oxycodone 5 mg tablet 5 mg PO Q6HPRN PRN moderate pain #20 tabs 10/29/23
pen needle, diabetic 32 gauge x 32' (BD Ultra-Fine Lashonda Pen Needle) #200 ea 10/29/23
sennosides 8.6 mg capsule (senna) 8.6 mg PO HS PRN When you take Oxycodone #30 caps 10/29/23
Pending Results: No
== END 2023-10-29 16:42 | disposition home or self-care (01) | DRG 439 ==
LOC: 4 EAST ACU 23:49
PROVIDERS: Hospitalist; Internal Medicine; Nurse Practitioner; Nurse Practitioner Adult Health; Nurse Practitioner Family; ADMITTING PHYSICIAN Internal Medicine; ATTENDING PHYSICIAN Hospitalist; CONSULT PHYSICIAN Internal Medicine Gastroenterology; EMERGENCY PHYSICIAN Emergency Medicine; FAMILY PHYSICIAN Family Medicine
PROC: 5A09357 Assistance with Respiratory Ventilation, Less than 24 Consecutive Hours, Continuous Positive Airway Pressure (ICD-10-PCS; 2023-10-24)
DX: K85.90 Acute pancreatitis without necrosis or infection, unspecified (principal); E87.1 Hypo-osmolality and hyponatremia; K86.3 Pseudocyst of pancreas; Q45.3 Other congenital malformations of pancreas and pancreatic duct; K86.1 Other chronic pancreatitis; E03.9 Hypothyroidism, unspecified; E05.00 Thyrotoxicosis with diffuse goiter without thyrotoxic crisis or storm; I10 Essential (primary) hypertension; G40.909 Epilepsy, unspecified, not intractable, without status epilepticus; J45.40 Moderate persistent asthma, uncomplicated; D72.829 Elevated white blood cell count, unspecified; E66.09 Other obesity due to excess calories; K21.9 Gastro-esophageal reflux disease without esophagitis; K76.89 Other specified diseases of liver; E11.65 Type 2 diabetes mellitus with hyperglycemia; G89.4 Chronic pain syndrome; E87.6 Hypokalemia; E20.9 Hypoparathyroidism, unspecified; G43.909 Migraine, unspecified, not intractable, without status migrainosus; K90.0 Celiac disease; E21.3 Hyperparathyroidism, unspecified; K76.0 Fatty (change of) liver, not elsewhere classified; D25.9 Leiomyoma of uterus, unspecified; G47.33 Obstructive sleep apnea (adult) (pediatric); Z86.010 Personal history of colon polyps; Z87.891 Personal history of nicotine dependence; Z88.0 Allergy status to penicillin; Z88.1 Allergy status to other antibiotic agents; Z91.041 Radiographic dye allergy status; Z79.890 Hormone replacement therapy; Z79.1 Long term (current) use of non-steroidal anti-inflammatories (NSAID); Z68.33 Body mass index [BMI] 33.0-33.9, adult
CPT/HCPCS: 74160; 74177; 80053; 82077; 82962; 83036; 83605; 83690; 83735; 85025; 85027; 86140; 87040; 94640; 94660; 96361; 96374; 96375; 99285; Q9967

== ENCOUNTER → 2024-05-27 13:25 | Outpatient (REF) | payer MEDICARE, OTHER, SELFPAY | LOC: RAD 13:25 | PROVIDERS: ATTENDING PHYSICIAN Internal Medicine Gastroenterology; FAMILY PHYSICIAN Family Medicine | DX: K86.1 Other chronic pancreatitis (principal) | CPT/HCPCS: 74177; Q9967 ==

== ENCOUNTER → 2024-06-18 06:27 | Day surgery (SDC) | payer MEDICARE, OTHER, SELFPAY ==
[2024-06-18 09:58] LABS: Glucose - Point of Care 121 mg/dl (70-99)
== END ==
LOC: GI 06:27
PROVIDERS: ATTENDING PHYSICIAN Internal Medicine Gastroenterology
DX: Z12.11 Encounter for screening for malignant neoplasm of colon (principal); K64.8 Other hemorrhoids; K62.1 Rectal polyp; Z80.0 Family history of malignant neoplasm of digestive organs; Z86.0101 Personal history of adenomatous and serrated colon polyps
CPT/HCPCS: 45380; 88305; 82962

== ENCOUNTER → 2024-08-23 09:10 | Outpatient (REF) | payer MEDICARE, OTHER, SELFPAY | LOC: HWRCS 09:10 | PROVIDERS: ATTENDING PHYSICIAN Internal Medicine Cardiovascular Disease; FAMILY PHYSICIAN Family Medicine | DX: R00.2 Palpitations (principal); E78.5 Hyperlipidemia, unspecified | CPT/HCPCS: 93306 ==

== ENCOUNTER → 2024-08-30 10:39 | Outpatient (REF) | payer MEDICARE, OTHER, SELFPAY | LOC: HWRAD 10:39 | PROVIDERS: ATTENDING PHYSICIAN Family Medicine | DX: M79.672 Pain in left foot (principal) | CPT/HCPCS: 73630 ==

== ENCOUNTER → 2024-08-31 09:46 | Outpatient (REF) | payer MEDICARE, OTHER, SELFPAY | LOC: RAD 09:46 | PROVIDERS: ATTENDING PHYSICIAN Internal Medicine Gastroenterology; FAMILY PHYSICIAN Family Medicine | DX: R13.19 Other dysphagia (principal) | CPT/HCPCS: 74221 ==

== ENCOUNTER → 2024-10-15 09:51 | Outpatient (REF) | payer MEDICARE, OTHER, SELFPAY | LOC: RST 09:51 | PROVIDERS: ATTENDING PHYSICIAN Otolaryngology; FAMILY PHYSICIAN Family Medicine | DX: R13.19 Other dysphagia (principal) | CPT/HCPCS: 74230; 92611 ==

== ENCOUNTER → 2025-02-03 15:12 | Outpatient (REF) | payer MEDICARE, OTHER, SELFPAY | LOC: RAD 15:12 | PROVIDERS: ATTENDING PHYSICIAN Internal Medicine Gastroenterology | DX: K85.91 Acute pancreatitis with uninfected necrosis, unspecified (principal) | CPT/HCPCS: 74177; Q9967 ==

== ENCOUNTER → 2025-04-29 08:52 | Outpatient (REF) | payer MEDICARE, OTHER, SELFPAY ==
[2025-04-29 12:56] LABS: Vitamin D, 25-OH*** 34.8 ng/mL (30-80)
== END ==
LOC: HWLAB 08:52
PROVIDERS: ATTENDING PHYSICIAN Internal Medicine Gastroenterology; FAMILY PHYSICIAN Family Medicine
DX: K86.1 Other chronic pancreatitis (principal); E21.3 Hyperparathyroidism, unspecified
CPT/HCPCS: 36415; 82306; 82652; 84446; 84590

== ENCOUNTER → 2025-05-03 12:10 | Outpatient (REF) | payer MEDICARE, OTHER, SELFPAY | LOC: HWLAB 12:10 | PROVIDERS: ATTENDING PHYSICIAN Internal Medicine Gastroenterology; FAMILY PHYSICIAN Family Medicine | DX: K86.1 Other chronic pancreatitis (principal) | CPT/HCPCS: 82653 ==

== ENCOUNTER → 2025-06-06 08:53 | Outpatient (REF) | payer MEDICARE, OTHER, SELFPAY | LOC: HWWDC 08:53 | PROVIDERS: ATTENDING PHYSICIAN Family Medicine | DX: Z12.31 Encounter for screening mammogram for malignant neoplasm of breast (principal) | CPT/HCPCS: 77063; 77067 ==

== ENCOUNTER → 2025-07-15 14:54 | Outpatient (REF) | payer MEDICARE, OTHER, SELFPAY | LOC: REG 14:54 | PROVIDERS: ATTENDING PHYSICIAN Allergy & Immunology; FAMILY PHYSICIAN Family Medicine | DX: Z91.013 Allergy to seafood (principal) | CPT/HCPCS: 36415; 86003 ==

== ENCOUNTER → 2025-07-29 09:47 | Outpatient (REF) | payer MEDICARE, OTHER, SELFPAY | LOC: REG 09:47 | PROVIDERS: ATTENDING PHYSICIAN Internal Medicine Gastroenterology; FAMILY PHYSICIAN Family Medicine | DX: R19.7 Diarrhea, unspecified (principal) | CPT/HCPCS: 87045; 87046; 87324; 87328; 87329; 87427; 87449; 89055 ==

== ENCOUNTER → 2025-08-02 15:56 | Outpatient (REF) | payer MEDICARE, OTHER, SELFPAY | LOC: REG 15:56 | PROVIDERS: ATTENDING PHYSICIAN Internal Medicine Gastroenterology | DX: R19.7 Diarrhea, unspecified (principal) | CPT/HCPCS: 82705 ==